=== PATIENT | female | born 1965 | race Caucasian/White ===

== ENCOUNTER 2017-12-08 01:12 | Inpatient (IN) | payer SELFPAY ==
[2017-12-08] MEDS ORDERED: RACEPINEPHRINE HCL 2.25% NEB 0.5 ML AMPUL NEB ONE ×2 (01:25→01:27)
[2017-12-08] MEDS ORDERED: TRANEXAMIC ACID INJ/PF 1,000 MG/10 ML SDV IV ONE ×2 (01:46→02:10)
[2017-12-08] MEDS ORDERED: NORMAL SALINE 250 ML IV PRN ×2 (01:57→03:17)
[2017-12-08 02:02] LABS: ABSOLUTE BASOPHILS # (AUTO) 0.1 10^3/uL (0.0-0.2); ABSOLUTE EOSINOPHILS # (AUTO) 0.8 10^3/uL (0.0-0.6); ABSOLUTE LYMPHOCYTES (AUTO) 3.8 10^3/uL (0.5-4.7); ABSOLUTE MONOCYTES (AUTO) 1.1 10^3/uL (0.1-1.4); ABSOLUTE NEUT (AUTO) 9.2 10^3/uL (1.7-8.2); BASOPHILS % (AUTO) 0.7 % (0-2); EOSINOPHILS % (AUTO) 5.4 % (0-6); HEMATOCRIT 38.9 % (36.0-47.0); HEMOGLOBIN 13.6 g/dL (12.0-15.5); LYMPHOCYTES % (AUTO) 25.3 % (13-45); MEAN CORPUSCULAR HGB CONC 34.8 g/dL (32.0-36.0); MEAN CORPUSCULAR VOLUME 83 fl (80-97); MONOCYTES % (AUTO) 7.1 % (3-13); PLATELET COUNT 385 10^3/uL (150-450); RED BLOOD COUNT 4.68 10^6/uL (3.72-5.28); RED CELL DISTRIBUTION WIDTH 14.5 % (11.5-14.0); SEGMENTED NEUTROPHILS % (AUTO) 61.5 % (42-78); TOTAL CELLS COUNTED % (AUTO) 100 %; WHITE BLOOD COUNT 14.9 10^3/uL (4.0-10.5)
[2017-12-08] MEDS ORDERED: ONDANSETRON HCL INJ/PF 4 MG/2 ML SDV IV ONE (02:17)
[2017-12-08] MEDS ORDERED: ONDANSETRON HCL INJ/PF 4 MG/2 ML SDV ONE (02:18)
--- NOTE | 2017-12-08 02:20 | ER Document Report ---
ED General - General Chief Complaint: Post Surgical Bleeding Stated Complaint: MOUTH PROBLEMS Time Seen by Provider: 12/08/17 01:25 Notes: Patient is a 52-year-old female presents with complaint of bleeding. She had surgery by Dr. Ledbetter at [facility] AT THE [facility] on November 27 for removal of an oral cancer. At that time she had an artificial graft placed. The graft did not take. She was seen on the and he removed some stitches but still left effusion. She restarted her Coumadin a few days ago. After restarting her Coumadin she is having some bleeding. She was seen yesterday at [facility] and there were eventually able to get the bleeding stopped with tranexamic acid. She went home and and eventually start bleeding again therefore came to the ER here. She denies any difficulty breathing. She said the bleeding has been continuous. She denies any trauma or injuries to the area. Her INR level yesterday was 2.5. TRAVEL OUTSIDE OF THE [place] IN LAST 30 DAYS: No - Related Data Allergies/Adverse Reactions: Iodinated Contrast- Oral and IV Dye Allergy (Verified 12/08/17 01:17) morphine Allergy (Verified 12/08/17 01:17) Sulfa (Sulfonamide Antibiotics) Allergy (Verified 12/08/17 01:17) Past Medical History - Social History Smoking Status: Former Smoker Frequency of alcohol use: None Drug Abuse: None Family History: Reviewed & Not Pertinent Review of Systems - Review of Systems Notes: My Normal Review Basic REVIEW OF SYSTEMS: CONSTITUTIONAL : Denies fever, chills, or sweats. Denies recent illness. EENT: Bleeding from left buccal mucosa. RESPIRATORY: Denies cough, cold, or chest congestion. Denies shortness of breath, difficulty breathing, or wheezing. MUSCULOSKELETAL: Denies neck or back pain or joint pain or swelling. NEUROLOGICAL: Denies altered mental status or loss of consciousness. ALL OTHER SYSTEMS REVIEWED AND NEGATIVE. Physical Exam - Vital signs Vitals: Pulse Resp BP Pulse Ox 84 20 132/81 H 95 12/08/17 01:32 12/08/17 01:32 12/08/17 01:32 12/08/17 01:32 - Notes Notes: General Appearance: Well nourished, alert, cooperative, no acute distress, mild obvious discomfort. Vitals: reviewed, See vital signs table. Head: no swelling or tenderness to the head Eyes: PERRL, EOMI, Conjuctiva clear Mouth: Patient is very friable appearing soft tissue inside left buccal mucosa. Active bleeding at this time. Large clot with active bleeding around the clot. Throat: No tonsillar inflammation, No airway obstruction, No lymphadenopathy Neck: Supple, no neck tenderness, No swelling. Lungs: No wheezing, No rales, No rhonci, No accessory muscle use, good air exchange bilaterally. Heart: Normal rate, Regular rythm, No murmur, no rub Neuro: speech clear, oriented x 3, normal affect, responds appropriately to questions. Course - Re-evaluation Re-evalutation: 12/08/17 02:22 Patient has bleeding from mouth from recent surgical site. I initially gave racemic epi. This slowed the bleeding only little bit. I therefore did a tranexamic acid laser treatment 500 mg tranexamic acid. This has not stopped bleeding either. I soaked the gauze of tranexamic acid and placed against site of bleeding. Patient continues to suction. She suctioned out approximately 300 mL's of blood thus far. I have ordered FFP. Is currently following. I will call her ENT doctor, Dr. Fragoso, at [facility] AT [facility]. 12/08/17 02:[address] Araujo who is covering for Dr. Ledbetter. He says he agrees to accept the patient for transfer but he is very concerned about the long truck ride being that is about 3 and half hours by ambulance. I understand his concerns. He requests that maybe our general surgeon take a look to see if he can help and also to call nearby hospitals to have ENT to see if they be willing to accept the patient. I put a call to [facility] and am waiting to hear back. I spoke with Dr. Morrissey, our general surgeon, who agrees to come evaluate the patient. 12/08/17 03:35 Dr. Morrissey did come down and see the patient. Evaluate the areas and we are holding pressure. Has started to decrease. I did speak with the ENT surgeon at [facility]. She said she be happy to accept the patient but she wants to wait to see what her general surgeon can do and whether not FFP help slow down the bleeding. FFP has still not arrived and I did speak with blood bank and they said she be available very soon. We do not have any any ENT business administration professor; however, Dr. Morrissey is able to get in touch with Dr. Wilkerson, local ENT physician, who agreed to come and help Dr. Morrissey in the OR despite him not being business administration professor. We are very appreciative of Dr. Wilkerson's and Dr. Morrissey's help. Patient has now left to go to the OR. - Vital Signs Vital signs: Temp Pulse Resp BP Pulse Ox 82 12 126/81 H 95 12/08/17 03:24 12/08/17 03:24 12/08/17 03:24 12/08/17 03:24 - Laboratory Result Diagrams: 12/08/17 01:49 12/08/17 01:49 Laboratory results interpreted by me: 12/08/17 12/08/17 12/08/17 01:49 01:49 01:49 WBC 14.9 H RDW 14.5 H Absolute Neutrophils 9.2 H Absolute Eosinophils 0.8 H PT 24.4 H APTT 41.2 H Sodium 145.5 H Creatinine 1.56 H Est GFR ( Amer) 42 L Est GFR (Non-Af Amer) 35 L Glucose 187 H Crossmatch 12/08/17 01:49 WBC RDW Absolute Neutrophils Absolute Eosinophils PT APTT Sodium Creatinine Est GFR ( Amer) Est GFR (Non-Af Amer) Glucose Crossmatch See Detail Critical Care Note - Critical Care Note Total time excluding time spent on procedures (mins): 60 Comments: Critical care time for this patient not including time spent on procedures approximately 60 minutes due to frequent trips and treatment at bedside trying to get the bleeding to stop, holding pressure, applying medications, management of hemorrhage, discussion with specialist. Discharge - Discharge Clinical Impression: Post-operative hemorrhage Qualifiers: Procedure type: non-ophthalmic Laterality: left Condition: Stable Disposition: ADMITTED OBSERVATION Admitting Provider: Surgicalist Unit Admitted: OR
[2017-12-08 02:23] LABS: ANION GAP 12 (5-19); BLOOD UREA NITROGEN 18 mg/dL (7-20); CALCIUM 9.1 mg/dL (8.4-10.2); CARBON DIOXIDE 29 mmol/L (22-30); CHLORIDE 105 mmol/L (98-107); GLUCOSE 187 mg/dL (75-110); POTASSIUM 3.8 mmol/L (3.6-5.0); SODIUM 145.5 mmol/L (137-145)
[2017-12-08 02:27] LABS: INTERNATIONAL RATION (INR) 2.08; PROTHROMBIN TIME 24.4 SEC (11.4-15.4)
[2017-12-08 02:28] LABS: PARTIAL THROMBOPLASTIN TIME 41.2 SEC (23.5-35.8)
[2017-12-08] MEDS ORDERED: THROMBIN (BOVINE) TOPICAL 20000 UNIT VIAL TP ONE (03:05)
[2017-12-08] MEDS ORDERED: THROMBIN (BOVINE) 5000 UNIT EPITAXIS KIT ONE (03:09)
[2017-12-08] MEDS ORDERED: AMPICILLIN SOD/SULBACTAM 3 GM VIAL IV ONE (03:19)
[2017-12-08] MEDS ORDERED: MIDAZOLAM 2 MG/2 ML INJ ONE ×2 (03:42→11:09)
[2017-12-08] MEDS ORDERED: PROPOFOL INJ 200 MG/20 ML VIAL IV ONE (03:42)
[2017-12-08] MEDS ORDERED: FENTANYL CITRATE INJ/PF 100 MCG/2 ML AMPUL ONE ×2 (03:42→05:14)
--- NOTE | 2017-12-08 04:08 | PDOC H&P ---
History of Present Illness Admission Date/PCP: 12/08/17 03:33 Patient complains of: Bleeding postoperative surgical site History of Present Illness: JIM MONK is a 52 year old female Who is 10 days status post resection of a left buccal mucosa tumor, with flap reconstruction with allograft at [facility]. The patient was evaluated 4 days ago in postoperative clinic at [place] and was found to have graft failure, and according to the patient the graft was removed. Early this evening the patient developed bleeding from the operative site and called 911 and was brought to [facility] by ground rescue with active bleeding. Of note the patient is on Coumadin for atherosclerotic peripheral vascular disease including the aorta. She resumed Coumadin several days ago. In the emergency department efforts were made by Dr. Delvin Blanton to transfer the patient back to [place], [facility], and [place] but efforts were unsuccessful. Dr. Blanton gave the patient racemic and epinephrine , and TXA, and held mechanical pressure but the bleeding continued. Blood bank was setting up for FFP. Dr. Morrissey arrived on the scene in the emergency department and examined the oral cavity and found multiple small sources of bleeding from the operative site. Compression dressing applied and the surgical team called in for intraoperative control of the bleeding site. Dr. Wilkerson, ENT was also called in. Past Medical History Past Medical History: Pharmacologic anticoagulation Cardiac Medical History: Reports: Myocardial Infarction, Hyperlipidema, Hypertension, Peripheral Vascular Disease Pulmonary Medical History: Reports: Bronchitis, Chronic Obstructive Pulmonary Disease (COPD) EENT Medical History: Reports: Other - Oral malignancy Neurological Medical History: Reports: None Endocrine Medical History: Reports: Diabetes Mellitus Type 2 Malignancy Medical History: Reports: None Musculoskeltal Medical History: Reports: Arthritis Psychiatric Medical History: Reports: None Traumatic Medical History: Reports: None Hematology: Reports: None Past Surgical History Past Surgical History: Reports: Cholecystectomy, Coronary Stent, Knee Replacement Social History Smoking Status: Current Every Day Smoker Frequency of Alcohol Use: Occasional Hx Recreational Drug Use: No Hx Prescription Drug Abuse: No Family History Parental Family History Reviewed: Yes Children Family History Reviewed: Yes Sibling(s) Family History Reviewed.: Yes Medication/Allergy Allergies/Adverse Reactions: Iodinated Contrast- Oral and IV Dye Allergy (Verified 12/08/17 01:17) morphine Allergy (Verified 12/08/17 01:17) Sulfa (Sulfonamide Antibiotics) Allergy (Verified 12/08/17 01:17) Review of Systems Constitutional: PRESENT: as per HPI Eyes: ABSENT: visual disturbances Ears: ABSENT: hearing changes Nose, Mouth, and Throat: PRESENT: as per HPI Gastrointestinal: ABSENT: abdominal pain, constipation, diarrhea, hematemesis, hematochezia, nausea, vomiting Genitourinary: ABSENT: dysuria, hematuria Psychiatric: ABSENT: anxiety, depression, homidical ideation, suicidal ideation Endocrine: ABSENT: cold intolerance, heat intolerance, polydipsia, polyuria Physical Exam Vital Signs: Temp Pulse Resp BP Pulse Ox 82 12 126/81 H 95 12/08/17 03:24 12/08/17 03:24 12/08/17 03:24 12/08/17 03:24 General appearance: PRESENT: mild distress Head exam: PRESENT: normocephalic Eye exam: PRESENT: EOMI Mouth exam: PRESENT: other - Active bleeding from the left buccal mucosa Neck exam: PRESENT: full ROM Respiratory exam: PRESENT: wheezes Cardiovascular exam: PRESENT: RRR Pulses: PRESENT: normal carotid pulses, normal radial pulses, normal femoral pulses, normal dorsalis pedis pul GI/Abdominal exam: PRESENT: soft, other - Nontender no peritoneal signs Rectal exam: PRESENT: deferred Extremities exam: PRESENT: full ROM Musculoskeletal exam: PRESENT: full ROM Neurological exam: PRESENT: alert, awake, oriented to person, oriented to place , oriented to time, oriented to situation Psychiatric exam: PRESENT: anxious Skin exam: PRESENT: dry Assessment & Plan - Diagnosis (1) Postoperative bleeding from incision Is this a current diagnosis for this admission?: Yes Plan: Patient has active postoperative bleeding from her oral mucosa at the side of resection of tumor at [facility] 10 days ago that is uncontrolled with pressure, and pro coagulant interventions. The patient needs to be taken to the operating room for control conditions, and mechanical. We have recruited Dr. Topete, ENT surgeon, to assist. (2) Type 2 diabetes mellitus Is this a current diagnosis for this admission?: Yes (3) Anticoagulation excessive Is this a current diagnosis for this admission?: Yes (5) History of intravascular stent placement Is this a current diagnosis for this admission?: Yes (6) Arthritis Is this a current diagnosis for this admission?: Yes (7) Smoker Is this a current diagnosis for this admission?: Yes (8) COPD (chronic obstructive pulmonary disease) Is this a current diagnosis for this admission?: Yes - Time Time Spent: 30 to 50 Minutes Critical Time spent with patient: 15-24 minutes Medications reviewed and adjusted accordingly: Yes Anticipated discharge: Home - Inpatient Certification Based on my medical assessment, after consideration of the patient's comorbidities, presenting symptoms, or acuity I expect that the services needed warrant INPATIENT care.: Yes I certify that my determination is in accordance with my understanding of Medicare's requirements for reasonable and necessary INPATIENT services [42 CFR 412.3e].: Yes Medical Necessity: Need For IV Fluids, Need for Pain Control, Need for IV Antibiotics, Need for Surgery
[2017-12-08] MEDS ORDERED: MEPERIDINE HCL/PF INJ 25 MG/1 ML DISP.SYRIN IV PRN (05:11)
[2017-12-08] MEDS ORDERED: PROMETHAZINE HCL INJ 25 MG/1 ML VIAL IV PRN (05:11)
[2017-12-08] MEDS ORDERED: DIPHENHYDRAMINE HCL 50 MG/ML VIAL IV PRN (05:11)
[2017-12-08] MEDS ORDERED: FENTANYL CITRATE INJ/PF 100 MCG/2 ML AMPUL IV PRN ×3 (05:11)
[2017-12-08] MEDS ORDERED: NICARDIPINE HCL RTU, ISO-OS 20 MG/200 ML RTUINJ IV ONE (05:52)
[2017-12-08] MEDS ORDERED: NICARDIPINE HCL RTU, ISO-OS 20 MG/200 ML RTUINJ IV PRN (06:09)
--- NOTE | 2017-12-08 07:07 | RADIOLOGY REPORT (SQ) ---
EXAM DESCRIPTION: XR CHEST 1 VIEW COMPLETED DATE/TME: 12/08/2017 00:00 CLINICAL HISTORY: ETT placement COMPARISON: None. FINDINGS: Single frontal view of the chest. Endotracheal tube with tip at the level of the clavicles 5.5 cm above the esequiel left basilar airspace opacity. Heart is not enlarged. Atherosclerotic calcification of the thoracic aorta. No large effusion or pneumothorax. Leads overlie the chest. No acute osseous abnormalities. Upper abdominal soft tissues are unremarkable. IMPRESSION: 1. Endotracheal tube in appropriate position with tip 5.5 cm above the esequiel. 2. Left basilar opacities. This could be seen with developing pneumonia or atelectasis. Continued radiographic follow-up to resolution recommended.
[2017-12-08] MEDS: PROPOFOL 1,000 MG/100 ML INFUS..BTL IV PRN ×2 (07:12→08:43)
[2017-12-08] MEDS ORDERED: MORPHINE SULFATE 10 MG/ML INJ IV PRN (07:12)
--- NOTE | 2017-12-08 08:51 | EKG REPORT ---
SEVERITY:- ABNORMAL ECG - SINUS RHYTHM NONSPECIFIC T ABNORMALITIES, ANT-LAT LEADS : Confirmed by: Jose F Segura 08-Dec-2017 08:50:52
[2017-12-08 09:16] LABS: ANION GAP 12 (5-19); BLOOD UREA NITROGEN 21 mg/dL (7-20); CALCIUM 8.7 mg/dL (8.4-10.2); CARBON DIOXIDE 27 mmol/L (22-30); CHLORIDE 106 mmol/L (98-107); GLUCOSE 298 mg/dL (75-110); HEMATOCRIT 33.3 % (36.0-47.0); MEAN CORPUSCULAR HEMOGLOBIN 28.5 pg (27.0-33.4); MEAN CORPUSCULAR HGB CONC 33.4 g/dL (32.0-36.0); MEAN CORPUSCULAR VOLUME 85 fl (80-97); PLATELET COUNT 385 10^3/uL (150-450); POTASSIUM 4.1 mmol/L (3.6-5.0); RED CELL DISTRIBUTION WIDTH 14.4 % (11.5-14.0); SODIUM 145.3 mmol/L (137-145)
[2017-12-08 09:25] LABS: INTERNATIONAL RATION (INR) 1.45; PROTHROMBIN TIME 18.4 SEC (11.4-15.4)
[2017-12-08 09:26] LABS: PARTIAL THROMBOPLASTIN TIME 35.5 SEC (23.5-35.8)
[2017-12-08 09:34] LABS: HEMOGLOBIN 11.1 g/dL (12.0-15.5)
[2017-12-08] MEDS ORDERED: HYDROMORPHONE HCL INJ/PF 2 MG/ML AMPULE IV PRN (09:36)
[2017-12-08] MEDS ORDERED: INSULIN REG, HUMAN 100 UNIT/ML 3 ML VIAL (PYX) SUBCUT PRN (09:36)
[2017-12-08] MEDS ORDERED: GLUCAGON,HUMAN RECOMB 1 MG INJ IM PRN (09:36)
[2017-12-08] MEDS ORDERED: DEXTROSE 50%-WATER 25 GM/50 ML DISP.SYRIN IV PRN ×2 (09:36)
[2017-12-08] MEDS ORDERED: DEXTROSE 40% GEL 15 GM TUBE PO PRN ×2 (09:36)
--- NOTE | 2017-12-08 09:40 | PDOC PROGRESS REPORT ---
Subjective Progress Note for:: 12/08/17 Subjective:: Intubated and sedated Reason For Visit: OBSTRUCTION,S/P POST-OP ORAL BLEED Physical Exam Vital Signs: Temp Pulse Resp BP Pulse Ox 97.2 F 86 15 90/66 L 95 12/08/17 08:00 12/08/17 08:00 12/08/17 08:00 12/08/17 08:00 12/08/17 08:25 Intake & Output 12/07/17 12/08/17 12/09/17 06:59 06:59 06:59 Intake Total 950 69 Output Total 275 1150 Balance 675 -1081 Weight 70.8 kg General appearance: PRESENT: no acute distress Mouth exam: PRESENT: other - No active bleeding. Respiratory exam: PRESENT: rhonchi Cardiovascular exam: PRESENT: RRR Results Laboratory Results: 12/08/17 06:05 12/08/17 06:05 Sodium 145.3 H Potassium 4.1 Chloride 106 Carbon Dioxide 27 Anion Gap 12 BUN 21 H Creatinine 1.12 Est GFR ( Amer) > 60 Est GFR (Non-Af Amer) 51 L Glucose 298 H Calcium 8.7 Impressions: Chest X-Ray 12/08/17 00:00 IMPRESSION: 1. Endotracheal tube in appropriate position with tip 5.5 cm above the esequiel. 2. Left basilar opacities. This could be seen with developing pneumonia or atelectasis. Continued radiographic follow-up to resolution recommended. Assessment & Plan - Diagnosis (1) Post-operative hemorrhage Is this a current diagnosis for this admission?: Yes Plan: Status post surgical control and infusion of FFP. Hemorrhage appears to be under control. Will recheck labs. Keep patient intubated for now. Pending transfer to [facility] under the care of surgical service of her original surgeon.
--- NOTE | 2017-12-08 10:06 | OPERATIVE REPORT E ---
Operative Report NAME: JIM MONK : 1965 AGE: 52Y DATE OF SURGERY: 12/08/2017 ROOM: 601 PREOPERATIVE DIAGNOSES: 1. Left retromolar trigone and buccal mucosal area active arterial bleeding. 2. Recent history of left retromolar trigone and left buccal area tumor resection with local flap reconstruction. 3. Anticoagulation with Coumadin. POSTOPERATIVE DIAGNOSES: 1. Left retromolar trigone and buccal mucosal area active arterial bleeding. 2. Recent history of left retromolar trigone and left buccal area tumor resection with local flap reconstruction. 3. Anticoagulation with Coumadin. OPERATION PERFORMED: Complicated control of active arterial bleeding at the left retromolar trigone and buccal areas. PRIMARY SURGEON: JANA WILKERSON D.O. ASSISTING SURGEON: Cory Morrissey M.D. ANESTHETIC: General endotracheal tube. ANESTHESIA STAFF: GÓMEZ Schmidt ESTIMATED BLOOD LOSS: 75 mL. FLUIDS: 750 mL. FRESH FROZEN PLASMA: 600 mL. COMPLICATIONS: None during the case. FINDINGS: 1. The patient was noted to have active bright red blood flowing from the left side of her mouth despite having packs along the left buccal distribution. 2. The oral cavity and oropharynx was full of clotted blood and active bright red bleeding. 3. After extensive suctioning and removal of clot and irrigation, the area of the left retromolar trigone was noted to have necrotic tissue present. Once this tissue was debrided, the exact location of active arterial bleeding could be fully identified. 4. There was also active mucosal and granulation tissue bleeding throughout the postsurgical site. 5. Poor dentition with multiple missing teeth and extensive dental caries noted. 6. The soft palatal tissues were significantly redundant in nature and the uvula was midline and unremarkable in appearance. 7. The tongue was unremarkable in appearance. INDICATIONS: This is a 52-year-old white female who was seen and evaluated in the [facility] Emergency [facility] setting in the early childhood teacher assistant hours by General Surgery, Dr. Morrissey, and she was noted to have active oral cavity/oropharyngeal bleeding. The patient was also anticoagulated on Coumadin. The patient was approximately 10 days postop from a tumor resection with local flap reconstruction performed at [facility]. Dr. Morrissey was unable to clearly delineate where the active bleeding was coming from and was having to apply manual pressure in addition to packing the patient's mouth with gauze to have some degree of reasonable decrease in active bleeding. ENT was contacted for assistance for definitive management of active bleeding. I, Dr. Wilkerson, met the patient in the preop holding area outside the main OR and briefly discussed her situation and informed her that I would be assisting Dr. Morrissey and the OR team to manage her active bleeding. The patient at the time had her left oral cavity/buccal mucosal distribution packed with gauze. She voiced an understanding of the described plan and was in agreement. PROCEDURE: The patient was taken to the main operating room and was placed on the operating room table in the supine position. Appropriate monitors were placed. Using mask and IV access, general anesthesia was induced. The patient was transorally intubated without difficulty. At this point the patient was prepped and draped for oral cavity/oropharyngeal surgery. There was a Jannet-Yefri mouth gag inserted, it was opened, and the patient was placed into suspension. With additional retraction and extensive irrigation, clots were mobilized and removed. The necrotic debris in the retromolar trigone distribution on the left was removed. There was active arterial bleeding noted that was controlled with the use of suction and bipolar electrocautery. There was also additional bleeding throughout the left buccal distribution and retromolar trigone region as noted above. Suction electrocautery and bipolar electrocautery were both utilized to achieve adequate hemostasis. Additional findings are as noted above. The patient then underwent exam under anesthesia of the remaining oral cavity and oropharynx with additional blood clots removed from these areas. There was additional irrigation performed. There was no additional bleeding or blood clots noted. At this point the patient was cleaned of extensive dried blood over skin surfaces. The Jannet-Yefri mouth gag was released. It was reopened on 2 occasions with no additional bleeding noted. It was then closed and removed from the patient's mouth. There was no damage to the remaining teeth, lips, tongue, gums, or inside of the mouth. The patient was then returned to the anesthesia staff after additional dried blood was cleaned. The patient remained intubated and was then transported to the intensive care unit in stable condition. There were arrangements being made to transfer the patient back to [facility] for definitive management. There were no complications during the case. DICTATING PHYSICIAN: JANA WILKERSON D.O. [id number] PHY#: [id number] ID: [id number] JOB#: [id number] ACCT: [id number] cc:JANA WILKERSON D.O. >
[2017-12-08] MEDS ORDERED: ROCURONIUM BROMIDE INJ 50 MG/5 ML VIAL IV ONE (10:14)
[2017-12-08] MEDS ORDERED: SUCCINYLCHOLINE CHLORIDE INJ 200 MG/10 ML VIAL ONE (10:14)
[2017-12-08] MEDS ORDERED: MIDAZOLAM 2 MG/2 ML INJ IV PRN (11:10)
--- NOTE | 2017-12-08 11:53 | Physician Advisory Note ---
Physician Advisor ProgressNote .: Pursuant to the plan for [facility], I have reviewed the medical record for this patient. Physician Advisor Statement: Please consider documenting, if you agree: 1. "Anemia of Acute Blood Loss due to post-op hemorrhage" 2. "Acute Kidney Injury, likely due to , now resolved" 3. ?"possible ____ [gram-neg? anaerobic?aspiration?] pneumonia, evidenced by worsening leukocytosis, new lung opacities, rhonchi, " - If so, please state whether may have been developing at time of adm or not. 4. "Mild Acute hypernatremia, suspect due to " Status: 52yo w/ASPVD including aorta requiring intravascular stent & subsequent chronic anticoagulation, HTN, HLD, COPD, DM-2, ongoing tobacco abuse , extensive dental caries, recent removal of oral CA @ [facility] w/failure of allograft, came in w/active bleeding from multiple areas of friable soft tissue in retro-molar area while therapeutic on coumadin, not responsive to non- operative attempts to control bleeding. Taken emergently to OR for complicated surgery to control active arterial bleeding, including debridement of necrotic tissue. Had apparent FANTASMA + hypernatremia initially, as well. Attg ordered Inpt status at 03:30, just prior to taking pt to OR. Since surgery, kept intubated for protection of airway & in case she should require urgent repeat surgery, w/ plans underway for transfer to tertiary ctr. Pt w/rhonchi on exam now, CXR showing Lt basliar opacities concerning for possible Pneumonia, & leukocytosis is worsened. Pt also w/developing & worsening hypotension. Could be developing into sepsis from pneumonia. Pneumonia could be from aspiration of oral secretions (caries slime), or blood, or gram-neg bacteria (COPD, active smoking, DM-2. She is at high risk for difficulty fighting infection due to DM. Overall, severely high severity of illness & intensity of service & risk for morbidity/mortality in this case. Unknown insurer (listed as self-pay, but she could have insurance with the info just not obtained b/c of the acuity of her presentation). Unknown when [facility] may have a bed available, & when she will be felt sufficiently stabilized for transport to be reasonably safe. Attending clearly extremely concerned about this pt, not allowing nurse to transfuse prior to surgery due to level of urgency to stop the bleeding. Agree w/attending's decision for Inpatient status in this case. Thanks! CK -
--- NOTE | 2017-12-08 12:16 | TRANSFER SUMMARY E ---
Transfer Summary NAME: JIM MONK : 1965 AGE: 52Y ADMITTED: 12/08/2017 TRANSFERRED: 12/08/2017 DISCHARGE DIAGNOSES: 1. Postoperative bleed. 2. Left retromolar trigone and buccal mucosal active arterial bleeding with history of left retromolar trigone and left buccal area tumor resection with local flap reconstruction. PROCEDURE PERFORMED DURING HOSPITALIZATION: Complicated control of active arterial bleeder at the left retromolar trigone and buccal areas performed by Dr. Wilkerson on 12/08/2017. HOSPITAL COURSE: The patient was taken emergently to the operating room where she underwent the above-mentioned procedure. She had hemorrhage controlled in the operating room and did not demonstrate any evidence of active bleeding postoperatively. She was kept intubated and transfer arrangements were made with [facility] with the surgical team of her original surgeon at [place]. The patient is now being transferred to [facility] in stable condition. Her transfer medications are sliding scale insulin q.6 hours, 0-12 units subcutaneous regular insulin p.r.n., Versed 1 mg IV every 4 hours as needed. Patient had initially been placed on a nicardipine drip which was titrated to off at the time of transfer, Dilaudid 0.5 mg IV q.2 hours p.r.n., normal saline at 100 mL/h. Of note, her post intubation chest x-ray did demonstrate left basilar opacities, which will need to be followed upon transfer to [facility]. Her postoperative hematocrit was 33, her admission hematocrit was 38. She did receive FFP last night and her initial INR was 2.08 and her INR in the morning of transfer was 1.45, and again she had no evidence of active bleeding at the time of transfer. Her vent settings at the time of transfer are SIMV with a rate of 10, pressure support of 10, PEEP of 5, tidal volume of 450, and FiO2 of 40. DICTATING PHYSICIAN: MARCO GA M.D. [id number] PHY#: [id number] ID: [id number] JOB#: [id number] ACCT: [id number] cc:MARCO GA M.D. > [facility]
[2017-12-08 13:25] VITALS: BP 92/72
[2017-12-08] MEDS ORDERED: PIPERACILLIN SODIUM/TAZOBACTAM 3.375 GM in NORMAL SALINE 100 ML IV SCH (14:00)
== END 2017-12-08 12:52 | disposition short-term general hospital (02) | DRG 908 ==
LOC: ER 01:12 → EH 03:33 → OBSVTOIN 03:33 → ICU 05:35
PROVIDERS: ADMIT Surgery; ATTEND Surgery
PROC: 0CB4XZZ Excision of Buccal Mucosa, External Approach (ICD-10-PCS; 2017-12-08)
PROC: 30233K1 Transfusion of Nonautologous Frozen Plasma into Peripheral Vein, Percutaneous Approach (ICD-10-PCS; 2017-12-08)
PROC: 3E0DXGC Introduction of Other Therapeutic Substance into Mouth and Pharynx, External Approach (ICD-10-PCS; 2017-12-08)
PROC: 0W33XZZ Control Bleeding in Oral Cavity and Throat, External Approach (ICD-10-PCS; principal; 2017-12-08 04:16)
DX: K91.840 Postprocedural hemorrhage of a digestive system organ or structure following a digestive system procedure (principal); D68.32 Hemorrhagic disorder due to extrinsic circulating anticoagulants; E11.9 Type 2 diabetes mellitus without complications; C06.0 Malignant neoplasm of cheek mucosa; T45.515A Adverse effect of anticoagulants, initial encounter; J44.9 Chronic obstructive pulmonary disease, unspecified; M19.90 Unspecified osteoarthritis, unspecified site; K02.9 Dental caries, unspecified; E78.5 Hyperlipidemia, unspecified; I10 Essential (primary) hypertension; E11.51 Type 2 diabetes mellitus with diabetic peripheral angiopathy without gangrene; R91.8 Other nonspecific abnormal finding of lung field; Z96.659 Presence of unspecified artificial knee joint; F17.200 Nicotine dependence, unspecified, uncomplicated; Z95.5 Presence of coronary angioplasty implant and graft; Z88.6 Allergy status to analgesic agent; Z88.2 Allergy status to sulfonamides; Z91.041 Radiographic dye allergy status
CPT/HCPCS: 170; 36415; 36430; 71045; 80048; 82962; 85025; 85027; 85610; 85730; 86850; 86900; 86901; 86920; 93005; 93010; 94002; 94640; 96374; 96375; 99291; J0330; J1170; J1815; J2250; J2270; J2405; J2704; J3010; J3490; P9017

== ENCOUNTER 2018-03-23 10:32 | Emergency (ER) | payer SELFPAY ==
--- NOTE | 2018-03-23 11:01 | ER Document Report ---
ED Medical Screen (RME) - General Chief Complaint: Vaginal Discharge Stated Complaint: POSSIBLE STD Time Seen by Provider: 03/23/18 10:36 Mode of Arrival: Ambulatory Information source: Patient, [facility] Records Notes: 52-year-old female presents with complaint of left-sided facial swelling and neck swelling that started yesterday. She also presents with complaint of vaginal discharge, for 2 weeks. Patient does admit to unprotected sex with a new partner. She describes the discharge as yellow-green. I have greeted and performed a rapid initial assessment of this patient. A comprehensive ED assessment and evaluation of the patient, analysis of test results and completion of medical decision making process we will be contacted by additional ED providers. PHYSICAL EXAMINATION: Vital signs reviewed GENERAL: Well-appearing, well-nourished and in no acute distress. LUNGS: No respiratory distress Musculoskeletal: Normal range of motion NEUROLOGICAL: Normal speech, normal gait. PSYCH: Normal mood, normal affect. SKIN: Warm, Dry, normal turgor, no rashes or lesions noted. TRAVEL OUTSIDE OF THE [place] IN LAST 30 DAYS: No - HPI Onset: Yesterday Onset/Duration: Gradual Quality of pain: Throbbing Severity: Moderate Associated Symptoms: denies: Chest pain, Cough (productive), Fever, Shortness of breath Exacerbated by: Denies Relieved by: Denies Similar symptoms previously: Yes Recently seen / treated by doctor: Yes - Related Data Smoking: Cigarettes Frequency of alcohol use: None Drug Abuse: None Allergies/Adverse Reactions: Iodinated Contrast- Oral and IV Dye Allergy (Verified 03/23/18 10:33) morphine Allergy (Verified 03/23/18 10:33) Sulfa (Sulfonamide Antibiotics) Allergy (Verified 03/23/18 10:33) Past Medical History - Past Medical History Cardiac Medical History: Reports: Hx Heart Attack, Hx Hypercholesterolemia, Hx Hypertension, Hx Peripheral Vascular Disease Pulmonary Medical History: Reports: Hx Bronchitis, Hx COPD Endocrine Medical History: Reports: Hx Diabetes Mellitus Type 2 Renal/ Medical History: Denies: Hx Peritoneal Dialysis Musculoskeltal Medical History: Reports Hx Arthritis Past Surgical History: Reports: Hx Cholecystectomy, Hx Coronary Stent - Immunizations History of Influenza Vaccine for 01/2017 - 06/2017 Season: Unknown Physical Exam - Vital signs Vitals: Temp Pulse Resp BP Pulse Ox 98.6 F 74 18 144/85 H 99 03/23/18 10:41 03/23/18 10:41 03/23/18 10:41 03/23/18 10:41 03/23/18 10:41 Course - Vital Signs Vital signs: Temp Pulse Resp BP Pulse Ox 98.6 F 74 18 144/85 H 99 03/23/18 10:41 03/23/18 10:41 03/23/18 10:41 03/23/18 10:41 03/23/18 10:41
[2018-03-23 11:55] LABS: APPEARANCE,URINE CLEAR; BILIRUBIN,URINE NEGATIVE (NEGATIVE); COLOR,URINE YELLOW; GLUCOSE, URINE >=500 mg/dL (NEGATIVE); KETONES,URINE NEGATIVE (NEGATIVE); LEUKOCYTE ESTERASE,URINE MODERATE (NEGATIVE); NITRITE,URINE NEGATIVE (NEGATIVE); PROTEIN,URINE NEGATIVE (NEGATIVE); URINE SPECIFIC GRAVITY 1.011; UROBILINOGEN,URINE NEGATIVE mg/dL (<2.0)
[2018-03-23 12:12] LABS: BACTERIA (WET MOUNT) 3+ BACTERIA SEEN; RBCS (WET MOUNT) RARE RBCS SEEN; T.VAGINALIS (WET MOUNT) TRICHOMONAS SEEN; WBCS (WET MOUNT) 4+ WBCS SEEN; YEAST (WET MOUNT) NO YEAST SEEN
[2018-03-23] MEDS ORDERED: CEFTRIAXONE INJ 250 MG VIAL IM ONE (12:25)
[2018-03-23] MEDS ORDERED: LIDOCAINE 1% INJ-PF (10 MG/ML) 30 ML SDV INFIL ONE (12:25)
[2018-03-23] MEDS ORDERED: DOXYCYCLINE HYCLATE 100 MG TABLET PO ONE (12:29)
[2018-03-23] MEDS ORDERED: ONDANSETRON 4 MG TAB.RAPDIS PO ONE (12:41)
[2018-03-23] MEDS ORDERED: METRONIDAZOLE 500 MG TABLET PO ONE (12:41)
--- NOTE | 2018-03-23 13:41 | ER Document Report ---
ED GI/ - General Chief Complaint: Vaginal Discharge Stated Complaint: POSSIBLE STD Time Seen by Provider: 03/23/18 10:36 Mode of Arrival: Ambulatory TRAVEL OUTSIDE OF THE U.[place]. IN LAST 30 DAYS: No - HPI Patient complains to provider of: Other - Is a 52-year-old female with past medical history significant for diabetes as well as head and neck cancer that presents for evaluation of vaginal discharge and pain in the setting of a change recently in sexual partner. She notes that she has had sex with a single partner recently in an unprotected fashion after which she developed frothy discharge from her vagina with associated pelvic pain and cramping. She denies fevers, she denies nausea, she denies emesis, she denies constipation, she denies diarrhea. She does note that she has never had symptoms like this in the past and is concerned it could potentially be a sexually transmitted infection. Nothing has made it better, she has not tried anything to try and help with it. She does note that she has in the past had yeast infections as a result of antibiotic use. - Related Data Allergies/Adverse Reactions: codeine Allergy (Verified 03/23/18 11:41) Iodinated Contrast- Oral and IV Dye Allergy (Verified 03/23/18 11:41) morphine Allergy (Verified 03/23/18 11:41) Sulfa (Sulfonamide Antibiotics) Allergy (Verified 03/23/18 11:41) Past Medical History - General Information source: Patient, [facility] Records Last Menstrual Period: n/a - Social History Smoking Status: Current Every Day Smoker Chew tobacco use (# tins/day): No Frequency of alcohol use: None Drug Abuse: None Family History: Reviewed & Not Pertinent Patient has suicidal ideation: No Patient has homicidal ideation: No - Past Medical History Cardiac Medical History: Reports: Hx Heart Attack, Hx Hypercholesterolemia, Hx Hypertension, Hx Peripheral Vascular Disease Pulmonary Medical History: Reports: Hx Bronchitis, Hx COPD Endocrine Medical History: Reports: Hx Diabetes Mellitus Type 2 Renal/ Medical History: Denies: Hx Peritoneal Dialysis Musculoskeletal Medical History: Reports Hx Arthritis Past Surgical History: Reports: Hx Cardiac Catheterization - x stent 1, Hx Cholecystectomy, Hx Coronary Stent, Hx Hysterectomy Review of Systems - Review of Systems -: Yes All other systems reviewed and negative Physical Exam - Vital signs Vitals: Temp Pulse Resp BP Pulse Ox 98.6 F 74 18 144/85 H 99 03/23/18 10:41 03/23/18 10:41 03/23/18 10:41 03/23/18 10:41 03/23/18 10:41 - General General appearance: Appears well In distress: None - HEENT Head: Other - Asymmetric face with some appreciable swelling along the left side of the cheek into the mandible Eyes: Normal Conjunctiva: Normal Cornea: Normal Extraocular movements intact: Yes Eyelashes: Normal Pupils: PERRL - Respiratory Respiratory status: No respiratory distress Chest status: Nontender Breath sounds: Normal Chest palpation: Normal - Cardiovascular Rhythm: Regular Heart sounds: Normal auscultation Murmur: No - Abdominal Inspection: Normal Distension: No distension Bowel sounds: Normal Tenderness: Nontender Organomegaly: No organomegaly - Genitourinary External exam: Normal Speculum exam: Cervix closed, Vaginal discharge Vaginal bleeding: None - Back Back: Normal - Extremities General upper extremity: Normal inspection, Nontender, Normal color, Normal ROM , Normal temperature General lower extremity: Normal inspection, Nontender, Normal color, Normal ROM , Normal temperature, Normal weight bearing. No: Wendy's sign - Neurological Neuro grossly intact: Yes Cognition: Normal Orientation: AAOx4 [place] Coma Scale Eye Opening: Spontaneous [place] Coma Scale Verbal: Oriented [place] Coma Scale Motor: Obeys Commands Henry Coma Scale Total: 15 Speech: Normal Cranial nerves: Normal Cerebellar coordination: Normal Motor strength normal: LUE, RUE, LLE, RLE - Psychological Associated symptoms: Normal affect Course - Re-evaluation Re-evalutation: 03/23/18 17:35 52-year-old female who presents with complaints of lymphedema in her face which is noted in the past along the left side. Also she complains of pelvic discharge and pain in the setting of a recent change in sexual partners. The edema of the face is known to her oncologist and ENT surgeon, do not believe that this represents an acute emergency and that there is an immediate intervention which is warranted. We did discuss further imaging options though we agreed we would defer these at this time. We will plan to perform a pelvic examination and obtain pelvic swabs. Following obtaining pelvic swabs notable that patient has trichomoniasis. Also will obtain an HIV as we did discuss this potentially being an issue for her, she is in agreement at this time for treatment presumptively of her trichomoniasis gonorrhea and chlamydia. She will be discharged on a course of prescription. She will follow-up with her ENT surgeon. - Vital Signs Vital signs: Temp Pulse Resp BP Pulse Ox 98.1 F 74 19 132/72 H 98 03/23/18 15:01 03/23/18 15:01 03/23/18 15:01 03/23/18 15:01 03/23/18 15:01 - Laboratory Laboratory results interpreted by me: 03/23/18 11:13 Urine Glucose (UA) >=500 H Ur Leukocyte Esterase MODERATE H Procedures - Pelvic Exam Pelvic exam Cultures obtained: Yes Wet prep obtained: Yes Herpes culture obtained: No POC sent to lab: No Foreign body removed: No Bimanual exam performed: No Discharge - Discharge Clinical Impression: Trichomoniasis of vagina, Vaginal pain Edema Qualifiers: Edema type: unspecified Qualified Code(s): R60.9 - Edema, unspecified Condition: Good Disposition: HOME, SELF-CARE Instructions: Trichomonas Infection ([facility]), Vaginal Yeast Infection ([facility]) Additional Instructions: You were seen today in the emergency department for the vaginal discharge and vaginal pain as well as your facial swelling. You had evaluation including a physical exam as well as a pelvic exam. It appears that you likely have trichomoniasis. Use the antibiotic prescribed you for the next 10 days. Follow-up with your primary physician this week for reevaluation. Return for worsening abdominal pain, fevers, chills, inability to eat or drink. Schedule an appointment with your ENT surgeon for evaluation of the edema in your face. Prescriptions: Doxycycline Hyclate 100 mg PO BID #14 capsule Fluconazole [Diflucan] 100 mg PO ONCE PRN #2 tablet PRN Reason:
[2018-03-23 13:49] LABS: CHLAM PCR NOT DETECTED (NOT DETECT); GON PCR NOT DETECTED (NOT DETECT)
[2018-03-23 15:02] VITALS: BP 132/72
== END 2018-03-23 15:01 | disposition home or self-care (01) ==
LOC: ER 10:32
DX: A59.01 Trichomonal vulvovaginitis (principal); I89.0 Lymphedema, not elsewhere classified; I10 Essential (primary) hypertension; E11.51 Type 2 diabetes mellitus with diabetic peripheral angiopathy without gangrene; F17.200 Nicotine dependence, unspecified, uncomplicated; Z95.5 Presence of coronary angioplasty implant and graft; Z85.9 Personal history of malignant neoplasm, unspecified
CPT/HCPCS: 99283; 96372; 36415; 87210; 81001; 86701; 87491; 87591; S0119; J3490; J0696

== ENCOUNTER 2018-07-21 08:29 | Emergency (ER) | payer MEDICAID ==
--- NOTE | 2018-07-21 09:36 | RADIOLOGY REPORT (SQ) ---
EXAM DESCRIPTION: CHEST SINGLE VIEW COMPLETED DATE/TIME: 07/21/2018 9:24 am REASON FOR STUDY: cough COMPARISON: 12/08/2017 EXAM PARAMETERS: NUMBER OF VIEWS: One view. TECHNIQUE: Single frontal radiographic view of the chest acquired. RADIATION DOSE: NA LIMITATIONS: None. FINDINGS: LUNGS AND PLEURA: No opacities, masses or pneumothorax. No pleural effusion. MEDIASTINUM AND HILAR STRUCTURES: No masses. Contour normal. HEART AND VASCULAR STRUCTURES: Heart normal in size. Normal vasculature. BONES: No acute findings. HARDWARE: None in the chest. OTHER: No other significant finding. IMPRESSION: No acute abnormality of the lungs in AP projection. TECHNICAL DOCUMENTATION: JOB ID: [id number] [employer]- All Rights Reserved Reading location - IP/workstation name: [email or web address]
--- NOTE | 2018-07-21 10:09 | ER Document Report ---
ED General - General Chief Complaint: Vaginal Bleeding Stated Complaint: VAGINAL BLEEDING Time Seen by Provider: 07/21/18 08:58 Primary Care Provider: [facility] [Provider Group] - Follow up as needed [facility] [Provider Group] - Follow up as needed TRAVEL OUTSIDE OF THE U.[place]. IN LAST 30 DAYS: No - HPI Notes: Patient is a 52-year-old female that presents to the emergency department for chief complaint of vaginal bleeding. Patient states this morning she has some bright red blood on her panty liner. She has stress incontinence and uses a urinary pad. She states it is a light pink and a small amount. She is not sure if it is in her urine or coming from her vagina. She denies any vaginal pain but does states she has had some itching and external irritation for the last few days. Patient does get frequent yeast infections and states she is concerned she probably has one currently. She has a history of hysterectomy. She has never had an issue with vaginal bleeding since her hysterectomy. Patient also states she has seasonal allergies and has been coughing a lot recently. She denies associated fever and chest pain. She did use an albuterol inhaler once this morning with some relief. Past Medical History: Seasonal allergies, diabetes Past Surgical History: Hysterectomy Social History: Daily tobacco. Denies drug and alcohol use Family History: Reviewed and noncontributory for presenting illness Allergies: Reviewed, see documented allergy list. REVIEW OF SYSTEMS: CONSTITUTIONAL : No fever No chills No diaphoresis No recent illness EENT: No vision changes congestion No sore throat CARDIOVASCULAR: No chest pain No palpitations RESPIRATORY: shortness of breath cough No difficulty breathing GASTROINTESTINAL: No abdominal pain No nausea No vomiting No diarrhea GENITOURINARY: No dysuria No hematuria No difficulty urinating Vaginal bleeding MUSCULOSKELETAL: No back pain No leg pain No arm pain SKIN: No rashes No lesions LYMPHATIC: No swollen, enlarged glands. NEUROLOGICAL: No lightheadedness No headache No weakness No paresthesias PSYCHIATRIC: No anxiety No depression PHYSICAL EXAMINATION: Vital signs reviewed, nursing noted reviewed. GENERAL: Well-appearing, well-nourished and in no acute distress. HEAD: Atraumatic, normocephalic. EYES: Eyes appear normal, extraocular movements intact, sclera anicteric, conjunctiva are normal. ENT: nares patent, oropharynx clear without exudates. Moist mucous membranes. NECK: Normal range of motion, supple without lymphadenopathy LUNGS: Breath sounds clear to auscultation bilaterally and equal. No wheezes rales or rhonchi. HEART: Regular rate and rhythm without murmurs ABDOMEN: Soft, nontender, normoactive bowel sounds. No rebound, guarding, or rigidity. No masses appreciated. : External vaginal erythema and irritation, friable area with trace bright red bleeding on anterior aspect of vaginal wall. No other vaginal wall irritation or bleeding. Thick white vaginal discharge. No adnexal tenderness. EXTREMITIES: Nontender, good range of motion, no pitting or edema. NEUROLOGICAL: No focal neurological deficits. Moves all extremities spontaneously Motor and sensory grossly intact on exam. PSYCH: Normal mood, normal affect. SKIN: Warm, Dry, normal turgor, no rashes or lesions noted on exposed skin - Related Data Allergies/Adverse Reactions: codeine Allergy (Verified 07/21/18 08:30) Iodinated Contrast- Oral and IV Dye Allergy (Verified 07/21/18 08:30) morphine Allergy (Verified 07/21/18 08:30) Sulfa (Sulfonamide Antibiotics) Allergy (Verified 07/21/18 08:30) Past Medical History - Social History Smoking Status: Current Every Day Smoker Family History: Reviewed & Not Pertinent Patient has suicidal ideation: No Patient has homicidal ideation: No - Past Medical History Cardiac Medical History: Reports: Hx Heart Attack, Hx Hypercholesterolemia, Hx Hypertension, Hx Peripheral Vascular Disease Pulmonary Medical History: Reports: Hx Asthma, Hx Bronchitis, Hx COPD Endocrine Medical History: Reports: Hx Diabetes Mellitus Type 2 Renal/ Medical History: Denies: Hx Peritoneal Dialysis Musculoskeletal Medical History: Reports Hx Arthritis Past Surgical History: Reports: Hx Cardiac Catheterization - x stent 1, Hx Cholecystectomy, Hx Coronary Stent, Hx Hysterectomy Physical Exam - Vital signs Vitals: Temp Pulse Resp BP Pulse Ox 98.3 F 104 H 20 126/76 H 98 07/21/18 08:43 07/21/18 08:43 07/21/18 08:43 07/21/18 08:43 07/21/18 08:43 Course - Re-evaluation Re-evalutation: 07/21/18 10:08 Vitals reviewed. Nursing notes reviewed. Chest x-ray was obtained for complaint of cough and shortness of breath. Chest x-ray shows no acute pulmonary process. Patient does smoke and was counseled on smoking cessation. She will increase the use of her albuterol inhaler to 2 puffs every 4 hours and begin taking Claritin or Zyrtec. Patient will not be given steroids because she is a diabetic and is currently oxygenating well on room air and in no respiratory distress. Patient does have an excoriated area likely causing her vaginal bleeding. This is secondary to her acute vaginal yeast infection. Patient was given Diflucan for yeast infection. 07/21/18 10:30 Urinalysis is negative for infection. Patient will be discharged home in stable condition and encouraged to follow with gynecology. Laboratory 07/21/18 09:02 Urine Color YELLOW Urine Appearance CLEAR Urine pH 6.0 Ur Specific [place] 1.030 Urine Protein NEGATIVE Urine Glucose (UA) >=500 H Urine Ketones NEGATIVE Urine Blood NEGATIVE Urine Nitrite NEGATIVE Urine Bilirubin NEGATIVE Urine Urobilinogen NEGATIVE Ur Leukocyte Esterase TRACE H Urine WBC (Auto) 1 Urine RBC (Auto) 0 Urine Bacteria (Auto) TRACE Squamous Epi Cells Auto <1 Urine Mucus (Auto) RARE Urine Ascorbic Acid NEGATIVE Chest X-Ray 07/21/18 08:59 IMPRESSION: No acute abnormality of the lungs in AP projection. - Vital Signs Vital signs: Temp Pulse Resp BP Pulse Ox 98.3 F 104 H 20 126/76 H 98 07/21/18 08:43 07/21/18 08:43 07/21/18 08:43 07/21/18 08:43 07/21/18 08:43 - Laboratory Laboratory results interpreted by me: 07/21/18 09:02 Urine Glucose (UA) >=500 H Ur Leukocyte Esterase TRACE H Discharge - Discharge Clinical Impression: Yeast vaginitis, Wheezing Condition: Stable Disposition: HOME, SELF-CARE Instructions: Vaginal Yeast Infection ([facility]) Additional Instructions: Please return to the emergency department if you have any worsening, or concern of your symptoms. Please return to the emergency department if you develop chest pain, difficulty breathing, severe abdominal pain, or ongoing vomiting. Please follow-up with your primary care physician in 2-3 days and any other recommended physicians. If prescribed, take all medications as directed. If you have any questions or concerns do not hesitate to return the emergency department for evaluation. Use your albuterol inhaler 2 puffs every 4 hours for shortness of breath Quit smoking tobacco Prescriptions: Fluconazole [Diflucan] 150 mg PO ONCE PRN #1 tablet PRN Reason: Forms: Smoking Cessation Education Referrals: [facility] [Provider Group] - Follow up as needed [facility] [Provider Group] - Follow up as needed
[2018-07-21 10:26] LABS: APPEARANCE,URINE CLEAR; BILIRUBIN,URINE NEGATIVE (NEGATIVE); COLOR,URINE YELLOW; GLUCOSE, URINE >=500 mg/dL (NEGATIVE); KETONES,URINE NEGATIVE (NEGATIVE); LEUKOCYTE ESTERASE,URINE TRACE (NEGATIVE); NITRITE,URINE NEGATIVE (NEGATIVE); PROTEIN,URINE NEGATIVE (NEGATIVE); UROBILINOGEN,URINE NEGATIVE mg/dL (<2.0)
[2018-07-21] MEDS ORDERED: FLUCONAZOLE 100 MG TABLET PO ONE (10:55)
[2018-07-21 10:56] VITALS: BP 117/64
== END 2018-07-21 11:00 | disposition home or self-care (01) ==
LOC: ER 08:29
DX: B37.3 Candidiasis of vulva and vagina (principal); J44.9 Chronic obstructive pulmonary disease, unspecified; R05 Cough; R06.02 Shortness of breath; N39.3 Stress incontinence (female) (male); E11.51 Type 2 diabetes mellitus with diabetic peripheral angiopathy without gangrene; I10 Essential (primary) hypertension; F17.200 Nicotine dependence, unspecified, uncomplicated; Z90.710 Acquired absence of both cervix and uterus; Z88.5 Allergy status to narcotic agent; Z91.041 Radiographic dye allergy status; Z88.2 Allergy status to sulfonamides; Z95.5 Presence of coronary angioplasty implant and graft
CPT/HCPCS: 71045; 81001; 99284

== ENCOUNTER 2018-10-04 15:10 | Inpatient (IN) | payer MEDICAID ==
[2018-10-04] MEDS ORDERED: IPRATROPIUM/ALBUTEROL 0.5-2.5 MG/3 ML AMPUL NEB ONE (16:00)
[2018-10-04] MEDS ORDERED: NORMAL SALINE 1000 ML 1,000 ML IV ONE (16:01)
--- NOTE | 2018-10-04 16:06 | ER Document Report ---
ED Medical Screen (RME) - General Chief Complaint: Breathing Difficulty Stated Complaint: ABNORMAL LABS Time Seen by Provider: 10/04/18 15:57 Primary Care Provider: RICHARD RIVERS MD [Primary Care Provider] - Follow up as needed TRAVEL OUTSIDE OF THE U.[place]. IN LAST 30 DAYS: No - HPI Notes: 10/04/18 16:02 Patient is a 53-year-old female with a history of asthma, tobacco abuse, c oronary artery disease with one stent placed (on Plavix), hypertension who presents complaining of cough, shortness breath, wheezing, and diarrhea over the past week. She was diagnosed with pneumonia 4 days ago and was given Zithromax as well as prednisone, but her symptoms have continued/increased. Patient states that she had an Accu-Chek at her family doctor's office this morning and it was in the 400s and was sent here for evaluation. Denies DASH, fever, neck pain, URI, Abd pain, n/v, dysuria, back pain, or rash. I have treated and performed a rapid initial assessment of this patient. A comprehensive ED assessment and evaluation of the patient, analysis of test results and completion of medical decision making process will be conducted by additional ED providers. PHYSICAL EXAMINATION: GENERAL: Well-appearing, well-nourished and in no acute distress. A&Ox4. Answers questions appropriately. LUNGS: wheezing throughout. No retractions. 87-91% on RA in the triage room. HEART: Regular rate and rhythm without murmurs, rubs, gallops. Extremities: No cyanosis, clubbing, or edema b/l. NEUROLOGICAL: Normal speech, normal gait. PSYCH: Normal mood, normal affect. - Related Data Allergies/Adverse Reactions: codeine Allergy (Verified 10/04/18 15:40) Iodinated Contrast- Oral and IV Dye Allergy (Verified 10/04/18 15:40) morphine Allergy (Verified 10/04/18 15:40) Sulfa (Sulfonamide Antibiotics) Allergy (Verified 10/04/18 15:40) Past Medical History - Past Medical History Cardiac Medical History: Reports: Hx Heart Attack, Hx Hypercholesterolemia, Hx Hypertension, Hx Peripheral Vascular Disease Pulmonary Medical History: Reports: Hx Asthma, Hx Bronchitis, Hx COPD Endocrine Medical History: Reports: Hx Diabetes Mellitus Type 2 Renal/ Medical History: Denies: Hx Peritoneal Dialysis Musculoskeltal Medical History: Reports Hx Arthritis Past Surgical History: Reports: Hx Cardiac Catheterization - x stent 1, Hx Cholecystectomy, Hx Coronary Stent, Hx Hysterectomy - Immunizations History of Influenza Vaccine for 01/2017 - 06/2017 Season: Unknown Physical Exam - Vital signs Vitals: Temp Pulse Resp BP Pulse Ox 98.5 F 87 24 H 108/66 88 L 10/04/18 15:46 10/04/18 15:46 10/04/18 15:46 10/04/18 15:46 10/04/18 15:46 Course - Vital Signs Vital signs: Temp Pulse Resp BP Pulse Ox 98.5 F 87 24 H 108/66 88 L 10/04/18 15:46 10/04/18 15:46 10/04/18 15:46 10/04/18 15:46 10/04/18 15:46 Doctor's Discharge - Discharge Referrals: RICHARD RIVERS MD [Primary Care Provider] - Follow up as needed
--- NOTE | 2018-10-04 16:33 | RADIOLOGY REPORT (SQ) ---
EXAM DESCRIPTION: CHEST 2 VIEWS COMPLETED DATE/TIME: 10/04/2018 4:23 pm REASON FOR STUDY: cough, hypoxia COMPARISON: None. EXAM PARAMETERS: NUMBER OF VIEWS: two views TECHNIQUE: Digital Frontal and Lateral radiographic views of the chest acquired. RADIATION DOSE: NA LIMITATIONS: none FINDINGS: LUNGS AND PLEURA: Mild chronic interstitial changes. No infiltrate, effusion, or mass. MEDIASTINUM AND HILAR STRUCTURES: No masses or contour abnormalities. HEART AND VASCULAR STRUCTURES: Heart normal size. No evidence for failure. BONES: No acute findings. HARDWARE: None in the chest. OTHER: No other significant finding. IMPRESSION: Mild chronic lung changes. TECHNICAL DOCUMENTATION: JOB ID: [id number] [employer]- All Rights Reserved Reading location - IP/workstation name: [email or web address]
[2018-10-04 17:32] LABS: ABSOLUTE EOSINOPHILS # (AUTO) 0.2 10^3/uL (0.0-0.6); ABSOLUTE LYMPHOCYTES (AUTO) 1.8 10^3/uL (0.5-4.7); ABSOLUTE MONOCYTES (AUTO) 0.8 10^3/uL (0.1-1.4); ABSOLUTE NEUT (AUTO) 7.6 10^3/uL (1.7-8.2); BASOPHILS % (AUTO) 0.3 % (0-2); EOSINOPHILS % (AUTO) 1.8 % (0-6); HEMATOCRIT 38.3 % (36.0-47.0); HEMOGLOBIN 12.8 g/dL (12.0-15.5); LYMPHOCYTES % (AUTO) 17.5 % (13-45); MEAN CORPUSCULAR HEMOGLOBIN 24.9 pg (27.0-33.4); MEAN CORPUSCULAR HGB CONC 33.3 g/dL (32.0-36.0); MEAN CORPUSCULAR VOLUME 75 fl (80-97); MONOCYTES % (AUTO) 7.8 % (3-13); PLATELET COUNT 277 10^3/uL (150-450); RED BLOOD COUNT 5.13 10^6/uL (3.72-5.28); RED CELL DISTRIBUTION WIDTH 20.7 % (11.5-14.0); SEGMENTED NEUTROPHILS % (AUTO) 72.6 % (42-78); TOTAL CELLS COUNTED % (AUTO) 100 %; WHITE BLOOD COUNT 10.5 10^3/uL (4.0-10.5)
[2018-10-04] MEDS ORDERED: METHYLPREDNISOLONE INJ 125 MG/2 ML SDV IV ONE (17:47)
[2018-10-04] MEDS ORDERED: FAMOTIDINE INJ/PF 20 MG/2 ML SDV IV ONE (17:47)
[2018-10-04] MEDS ORDERED: DIPHENHYDRAMINE HCL 50 MG/ML VIAL IV ONE (17:47)
[2018-10-04 17:48] LABS: PROTHROMBIN TIME 12.6 SEC (11.4-15.4)
[2018-10-04 17:49] LABS: ALANINE AMINOTRANSFERASE 18 U/L (9-52); ALBUMIN 3.8 g/dL (3.5-5.0); ALKALINE PHOSPHATASE 104 U/L (38-126); ANION GAP 10 (5-19); ASPARTATE AMINO TRANSFERASE 12 U/L (14-36); BILIRUBIN,DIRECT 0.3 mg/dL (0.0-0.4); BILIRUBIN,TOTAL 0.8 mg/dL (0.2-1.3); BLOOD UREA NITROGEN 16 mg/dL (7-20); CALCIUM 8.8 mg/dL (8.4-10.2); CARBON DIOXIDE 26 mmol/L (22-30); CHLORIDE 95 mmol/L (98-107); POTASSIUM 4.3 mmol/L (3.6-5.0); SODIUM 130.7 mmol/L (137-145); TOTAL PROTEIN 6.8 g/dL (6.3-8.2)
[2018-10-04 17:58] LABS: GLUCOSE 524 mg/dL (75-110)
[2018-10-04 18:01] LABS: NT PRO BNP 133 pg/mL (5-900)
[2018-10-04 18:03] LABS: TROPONIN I < 0.012 ng/mL
[2018-10-04] MEDS ORDERED: INSULIN REG, HUMAN 100 UNIT/ML 3 ML VIAL (PYX) SUBCUT ONE (18:04)
--- NOTE | 2018-10-04 19:28 | RADIOLOGY REPORT (SQ) ---
EXAM DESCRIPTION: CTA CHEST COMPLETED DATE/TIME: 10/04/2018 7:01 pm REASON FOR STUDY: back pain, hypoxia, h/o PE COMPARISON: Chest radiograph 10/04/2018 TECHNIQUE: CT scan of the chest performed using helical scanning technique with dynamic intravenous contrast injection. Images reviewed with lung, soft tissue and bone windows. Reconstructed coronal and sagittal MPR images reviewed. Additional 3 dimensional post-processing performed to develop Maximal Intensity Projection images (TX P). All images stored on PACS. All CT scanners at this facility use dose modulation, iterative reconstruction, and/or weight based d osing when appropriate to reduce radiation dose to as low as reasonably achievable (ALARA). [facility]: Dose Right [facility]: CareDose [facility]: Dose Right [facility]: Teradose 4D [facility]: MobiTX CONTRAST TYPE AND DOSE: contrast/concentration: Isovue 300.00 mg/ml; Total Contrast Delivered: 67.0 ml; Total Saline Delivered: 107.0 ml Contrast bolus optimized for the pulmonary arteries. Not diagnostic for the aorta. RENAL FUNCTION: BUN 16; creatinine 0.82 RADIATION DOSE: CT Rad equipment meets quality standard of care and radiation dose reduction techniq ues were employed. CTDIvol: 15.0 - 19.8 mGy. DLP: 568 mGy-cm. . LIMITATIONS: None. FINDINGS: LUNGS AND PLEURA: Diffuse ground-glass opacities are of unknown chronicity. No masses, in filtrates, or pneumothorax. No pleural effusions or pleural calcifications. AORTA AND GREAT VESSELS: No aneurysm. Contrast bolus not optimized for the aorta. HEART: No pericardial effusion. Moderate to marked coronary artery calcifications. PULMONARY ARTERIES: No emboli visualized in the main pulmonary arteries or the segmental branches. HILAR AND MEDIASTINAL STRUCTURES: No identified masses or abnormal nodes. HARDWARE: None in the chest. UPPER ABDOMEN: Limited exam. Mild, symmetric nodularity of the adrenal glands. Cholecystectomy koch ges. THYROID AND OTHER SOFT TISSUES: No masses. No adenopathy. BONES: No acute or significant finding. 3D MIPS: Confirm above findings. OTHER: No other significant finding. IMPRESSION: No pulmonary emboli. Background of ground-glass opacities demonstrating an apical basil ar gradient is nonspecific and of unknown chronicity. Differential considerations include atypical i nfection, chronic interstitial disease (such as idiopathic interstitial pneumonia, eosinophilic pneum onia, etc), hypersensitivity pneumonitis, or other. COMMENT: Quality ID # [id number]: Final reports with documentation of one or more dose reduction techniques (e.g., Automated exposure control, adjustment of the mA and/or kV according to patient size, use of iterative reconstruction technique) TECHNICAL DOCUMENTATION: JOB ID: [id number] [employer]- All Rights Reserved Reading location - IP/workstation name: [email or web address]
[2018-10-04] MEDS ORDERED: CEFTRIAXONE 1 GM/D5W RTU 1 GM/50 ML RTUPB IV ONE (20:16)
[2018-10-04] MEDS ORDERED: KETOROLAC TROMETHAMINE INJ/PF 30 MG/1 ML SDV IV ONE (20:17)
--- NOTE | 2018-10-04 20:47 | ER Document Report ---
Entered by WILMAR FIGUEREDO SCRIBE 10/04/18 1217 Acting as scribe for:ALFONSO LOVE DO ED Respiratory Problem - General Chief Complaint: Breathing Difficulty Stated Complaint: ABNORMAL LABS Time Seen by Provider: 10/04/18 15:57 Information source: Patient Notes: 53-year-old female who presents to the emergency department today with complaints of a cough with associated shortness of breath. Patient was seen by her PCP x4 days ago and was started on a Z-Jitendra with prednisone. Patient states she went back today because she was not feeling any better and was found to have a low oxygen saturation. Patient states she has now developed some back pain along with this cough and shortness of breath. Patient states she has had diarrhea since starting the Z-Jitendra and has lost 12 pounds. Patient has a history of PE/DVT is not currently being anticoagulated. Patient denies any fevers, nausea, vomiting, or history of COPD. TRAVEL OUTSIDE OF THE [place] IN LAST 30 DAYS: No - Related Data Allergies/Adverse Reactions: codeine Allergy (Verified 10/04/18 15:40) Iodinated Contrast- Oral and IV Dye Allergy (Verified 10/04/18 15:40) morphine Allergy (Verified 10/04/18 15:40) Sulfa (Sulfonamide Antibiotics) Allergy (Verified 10/04/18 15:40) Past Medical History - General Information source: Patient - Social History Smoking Status: Current Every Day Smoker Cigarette use (# per day): Yes Chew tobacco use (# tins/day): No Frequency of alcohol use: None Drug Abuse: None Family History: Reviewed & Not Pertinent Patient has suicidal ideation: No Patient has homicidal ideation: No - Past Medical History Cardiac Medical History: Reports: Hx Heart Attack, Hx Hypercholesterolemia, Hx Hypertension, Hx Peripheral Vascular Disease Pulmonary Medical History: Reports: Hx Asthma, Hx Bronchitis, Hx COPD Endocrine Medical History: Reports: Hx Diabetes Mellitus Type 2 Musculoskeletal Medical History: Reports Hx Arthritis Past Surgical History: Reports: Hx Cardiac Catheterization - x stent 1, Hx Cholecystectomy, Hx Coronary Stent, Hx Hysterectomy Review of Systems - Review of Systems Constitutional: denies: Fever EENT: No symptoms reported Cardiovascular: No symptoms reported Respiratory: See HPI, Cough, Short of breath Gastrointestinal: denies: Nausea, Vomiting Genitourinary: No symptoms reported Female Genitourinary: No symptoms reported Musculoskeletal: See HPI, Back pain Skin: No symptoms reported Hematologic/Lymphatic: No symptoms reported Neurological/Psychological: No symptoms reported -: Yes All other systems reviewed and negative Physical Exam - Vital signs Vitals: Temp Pulse Resp BP Pulse Ox 98.5 F 87 24 H 108/66 88 L 10/04/18 15:46 10/04/18 15:46 10/04/18 15:46 10/04/18 15:46 10/04/18 15:46 - Notes Notes: PHYSICAL EXAM GENERAL: Alert, interacts well. Appears tired. HEAD: Normocephalic, atraumatic. EYES: Pupils equal, round, and reactive to light. Extraocular movements intact. ENT: Oral mucosa moist, tongue midline. NECK: Full range of motion. Supple. Trachea midline. LUNGS: Diffuse inspiratory rhonchi along with popping and squeaking. No expiratory wheezing. No respiratory distress while on oxygen. HEART: Regular rate and rhythm. No murmurs, gallops, or rubs. ABDOMEN: Soft, non-tender. Non-distended. Bowel sounds present in all 4 quadrants. No guarding, rigidity, or rebound. EXTREMITIES: Moves all 4 extremities spontaneously. No edema, radial and dorsalis pedis pulses 2/4 bilaterally. No cyanosis. NEUROLOGICAL: Alert and oriented x3. Normal speech. PSYCH: Normal affect, normal mood. SKIN: Warm, dry, normal turgor. No rashes or lesions noted. Course - Re-evaluation Re-evalutation: 10/04/18 20:25 CBC unremarkable, coags normal, CMP shows hyponatremia at 130.7, likely pseudohyponatremia given the glucose of 524, CXR was did not show any acute process, given the normal-appearing chest x-ray and of the hypoxia and the history of pulmonary embolism patient had a CT angiogram of the chest ordered, this did not show any pulmonary embolism but did show diffuse groundglass opacities. Patient does have a history of allergic reaction IV contrast so she was pretreated with Pepcid, Benadryl and Solu-Medrol. Solu-Medrol will also obviously benefit the inflammation in her lungs. Infectious source was treated with Rocephin. Patient is complaining of chronic low back pain which is treated with Toradol 15 mg IV. Insulin was given to treat the elevated blood sugar. 10 units were given and patient was also given a liter of normal saline. 10/04/18 20:26 I did discuss the patient with Dr. Mejia who agreed to admit the patient to his service on the medical floor for acute hypoxic respiratory failure. Patient is currently stable on 3 L via nasal cannula. - Vital Signs Vital signs: Temp Pulse Resp BP Pulse Ox 98.5 F 87 33 H 102/59 L 87 L 10/04/18 15:46 10/04/18 15:46 10/04/18 18:00 10/04/18 18:00 10/04/18 18:00 - Laboratory Result Diagrams: 10/04/18 17:15 10/04/18 17:15 Laboratory results interpreted by me: 10/04/18 10/04/18 17:15 17:15 MCV 75 L MCH 24.9 L RDW 20.7 H Sodium 130.7 L Chloride 95 L Glucose 524 H* AST 12 L - EKG Interpretation by Me Additional EKG results interpreted by me: 10/04/18 20:25 EKG shows sinus rhythm at a rate of 77, normal axis, normal intervals, no ST segment elevations or depressions, no T wave inversions per my interpretation. Discharge - Discharge Clinical Impression: Acute on chronic respiratory failure with hypoxia Type 2 diabetes mellitus Qualifiers: Diabetes mellitus [facility] insulin use: with technician terminal and repeater use Diabetes mellitus complication status: with hyperglycemia Qualified Code(s): E11.65 - Type 2 diabetes mellitus with hyperglycemia; Z79.4 - longterm (current) use of insulin Condition: Fair Disposition: ADMITTED INPATIENT Admitting Provider: Roberto (Hospitalist) Unit Admitted: Medical Floor I personally performed the services described in the documentation, reviewed and edited the documentation which was dictated to the scribe in my presence, and it accurately records my words and actions.
[2018-10-04] MEDS ORDERED: DEXTROSE 50%-WATER 25 GM/50 ML DISP.SYRIN IV PRN ×2 (21:10)
[2018-10-04] MEDS ORDERED: ZOLPIDEM TARTRATE 5 MG TABLET PO PRN (21:10)
[2018-10-04] MEDS ORDERED: MAG HYDROX/AL HYDROX/SIMETH SUSP 30 ML UDCUP PO PRN (21:10)
[2018-10-04] MEDS ORDERED: MAGNESIUM HYDROXIDE SUSP 30 ML UDCUP PO PRN (21:10)
[2018-10-04] MEDS ORDERED: ONDANSETRON HCL INJ/PF 4 MG/2 ML SDV IV PRN (21:10)
[2018-10-04] MEDS ORDERED: DEXTROSE 40% GEL 15 GM TUBE PO PRN ×2 (21:10)
[2018-10-04] MEDS ORDERED: GLUCAGON,HUMAN RECOMB 1 MG INJ IM PRN (21:10)
[2018-10-04] MEDS ORDERED: ACETAMINOPHEN 325 MG TABLET PO PRN (21:16)
[2018-10-04] MEDS ORDERED: NICOTINE 21 MG/24 HR PATCH.TD24 TD PRN (21:16)
[2018-10-04] MEDS ORDERED: LEVALBUTEROL HCL NEB 0.63 MG/3 ML AMPUL NEB PRN (21:16)
[2018-10-04] MEDS ORDERED: GUAIFENESIN SYRP 200 MG/10 ML UDC PO PRN (21:18)
[2018-10-04] MEDS ORDERED: AZITHROMYCIN INJ 500 MG VIAL IV ONE (21:19)
[2018-10-04] MEDS ORDERED: NALBUPHINE HCL INJ 10 MG/1 ML AMPULE IV PRN (21:27)
[2018-10-04 21:42] LABS: VENOUS BLOOD BASE EXCESS 0.9 mmol/L; VENOUS BLOOD HCO3 25.6 mmol/L (20-32); VENOUS BLOOD PCO2 40.9 mmHg (35-63); VENOUS BLOOD PH 7.41 (7.30-7.42)
[2018-10-04] MEDS ORDERED: AZITHROMYCIN 500 MG in DEXTROSE 5%-WATER 250 ML IV ONE (22:00)
[2018-10-04] MEDS: GABAPENTIN 300 MG CAPSULE PO SCH (22:18)
[2018-10-04] MEDS: ATORVASTATIN CALCIUM 80 MG TABLET PO SCH (22:18)
[2018-10-04] MEDS: HEPARIN SOD (PORCINE) 5,000 UNIT/ML 1 ML SYRINGE SUBCUT SCH (22:19)
[2018-10-04] MEDS: CARVEDILOL 12.5 MG TABLET PO SCH (22:29)
[2018-10-04 23:20] LABS: APPEARANCE,URINE CLEAR; BILIRUBIN,URINE NEGATIVE (NEGATIVE); COLOR,URINE YELLOW; GLUCOSE, URINE >=500 mg/dL (NEGATIVE); KETONES,URINE NEGATIVE (NEGATIVE); LEUKOCYTE ESTERASE,URINE NEGATIVE (NEGATIVE); NITRITE,URINE NEGATIVE (NEGATIVE); PROTEIN,URINE NEGATIVE (NEGATIVE); UROBILINOGEN,URINE NEGATIVE mg/dL (<2.0)
--- NOTE | 2018-10-04 23:35 | EKG REPORT ---
SEVERITY:- BORDERLINE ECG - SINUS RHYTHM BORDERLINE T WAVE ABNORMALITIES : Confirmed by: Haley Alonzo MD 04-Oct-2018 23:35:20
[2018-10-04] MEDS: IPRATROPIUM BROMIDE 0.02% NEB 0.5 MG/2.5 ML AMPUL NEB SCH (23:59)
[2018-10-04] MEDS: LEVALBUTEROL HCL NEB 1.25 MG/3 ML AMPUL NEB SCH (23:59)
[2018-10-05 00:25] LABS: ARTERIAL BLOOD BASE EXCESS 2.7 mmol/L; ARTERIAL BLOOD H2CO3 1.27 mmol/L (1.05-1.35); ARTERIAL BLOOD HCO3 27.4 mmol/L (20-24); ARTERIAL BLOOD O2 SATURATION 91.8 % (94-98); ARTERIAL BLOOD PCO2 42.3 mmHg (35-45); ARTERIAL BLOOD PH 7.43 (7.35-7.45); ARTERIAL BLOOD PO2 60.5 mmHg (80-100); ARTERIAL BLOOD TOTAL CO2 28.7 mmol/L (21-25)
[2018-10-05 00:32] LABS: ARTERIAL BLOOD FIO2 32%
[2018-10-05] MEDS: METHYLPREDNISOLONE INJ 40 MG/1 ML SDV IV SCH ×5 (00:40→23:04)
[2018-10-05] MEDS: RINGERS SOLUTION,LACTATED 1,000 ML IV PRN ×2 (00:43→07:35)
[2018-10-05] MEDS: INSULIN LISPRO 100 UNIT/ML 3 ML VIAL SUBCUT PRN ×4 (00:50→17:16)
[2018-10-05] MEDS: GABAPENTIN 300 MG CAPSULE PO SCH ×3 (05:10→21:48)
[2018-10-05] MEDS: PANTOPRAZOLE SODIUM 40 MG TABLET.DR PO SCH (05:10)
[2018-10-05] MEDS: HEPARIN SOD (PORCINE) 5,000 UNIT/ML 1 ML SYRINGE SUBCUT SCH ×3 (05:10→21:48)
[2018-10-05] MEDS: LEVOTHYROXINE SODIUM 0.05 MG TABLET PO SCH (05:10)
--- NOTE | 2018-10-05 06:49 | PDOC H&P ---
History of Present Illness Admission Date/PCP: 10/04/2017 20:30 RICHARD RIVERS MD Patient complains of: Dyspnea History of Present Illness: JIM MONK is a 53 year old female who presented to the emergency room with a 7-day history of dyspnea. She admits progressively worsening dyspnea over the last 4 days despite outpatient treatment. She was seen by urgent care 4 days ago and started on Zithromax and prednisone for a pneumonia. Despite treatment her dyspnea has progressively worsened to being moderately severe and she returned to urgent care today, where she was found to be hypoxic and hyperglycemic, thus she was sent to the emergency room for further evaluation. She further admits associated symptoms of a moderate productive cough (yellowish sputum), severe dyspnea on exertion, wheezing and a few episodes of loose stools. She admits prior similar episodes related to her COPD/asthma and further admits that she continues to smoke cigarettes despite her symptoms. She denies identification of any additional aggravating or ameliorating factors for her acute dyspnea. In the emergency room she was found to have an O2 sat in the low 80s at rest and was treated with supplemental oxygen and nebulizer therapy as well as intravenous steroids. Her chest x-ray was negative and a CTA of the chest revealed no evidence of pulmonary emboli. Patient was subsequently admit pat to hospital for further evaluation and treatment. Past Medical History Cardiac Medical History: Reports: Coronary Artery Disease, Myocardial Infarction, Hyperlipidema, Hypertension, Peripheral Vascular Disease, Pulmonary Embolism - Previously on long-term anticoagulation Denies: Atrial Fibrillation, Congestive Heart Failure Pulmonary Medical History: Reports: Asthma, Bronchitis, Chronic Obstructive Pulmonary Disease (COPD), Pneumonia, Respiratory Failure EENT Medical History: Denies: Cataracts, Ears - Hearing aids Neurological Medical History: Denies: Hemorrhagic CVA, Ischemic CVA, Multiple Sclerosis, Seizures Endocrine Medical History: Reports: Diabetes Mellitus Type 2, Hypothyroidism Denies: Diabetes Mellitus Type 1, Hyperthyroidism, Obesity Renal/ Medical History: Denies: Chronic Kidney Disease, Nephrolithiasis Malignancy Medical History: Reports: Other - Oral cancer GI Medical History: Denies: Cirrhosis, Crohn's Disease, Hepatitis, Ulcerative Colitis Musculoskeltal Medical History: Reports: Arthritis Denies: Fibromyalgia, Gout Skin Medical History: Denies: Eczema, Psoriasis Psychiatric Medical History: Reports: Tobacco Dependency Denies: Alcohol Dependency, Substance Abuse Traumatic Medical History: Reports: None Hematology: Denies: Anemia, Bleeding Tendencies Infectious Medical History: Reports: None Past Surgical History Past Surgical History: Reports: Cardiac Catheterization, Cholecystectomy, Coronary Stent, Hysterectomy, Knee Replacement, Other - Oral cancer surgery Social History Information Source: Patient Lives with: Family Smoking Status: Current Every Day Smoker Frequency of Alcohol Use: Occasional Hx Recreational Drug Use: No Drugs: None Hx Prescription Drug Abuse: No - Advance Directive Resuscitation Status: Full Code Surrogate healthcare decision maker:: Zakia Mcbride Family History Family History: CAD, DM, Hypertension, Malignancy Parental Family History Reviewed: Yes Children Family History Reviewed: No Sibling(s) Family History Reviewed.: Yes Medication/Allergy Home Medications: Clopidogrel Bisulfate [Plavix 75 mg Tablet] 75 mg PO DAILY 03/23/18 Hydrochlorothiazide 12.5 mg PO DAILY 03/23/18 Lisinopril [Prinivil] 5 mg PO DAILY 03/23/18 Metformin HCl 500 mg PO BIDBS 03/23/18 Albuterol Sulfate [Proair HFA Inhalation Aerosol 8.5 gm MDI] 2 puff IH Q6HP PRN 10/04/18 Albuterol Sulfate [Ventolin 0.083% Neb 2.5 mg/3 ml Ampul] 1 vial NEB RTQ6HP PRN 10/04/18 Alprazolam 1 mg PO Q6HP PRN 10/04/18 Atorvastatin Calcium [Lipitor 80 mg Tablet] 80 mg PO QHS 10/04/18 Azithromycin [Zithromax 250 mg Tablet] 250 mg PO DAILY MDD last dose 10/0410/04/18 Carvedilol [Coreg 12.5 mg Tablet] 12.5 mg PO Q12 10/04/18 Citalopram Hydrobromide [Celexa 40 mg Tablet] 40 mg PO DAILY 10/04/18 Fluconazole [Diflucan] 150 mg PO Q3DAYS MDD last dose 10/0610/04/18 Gabapentin [Neurontin 300 mg Capsule] 600 mg PO Q8 10/04/18 Levothyroxine Sodium [Synthroid 50 Mcg Tablet] 50 mcg PO Q6AM 10/04/18 Magnesium Oxide [Mag-Ox 400 mg Tablet] 400 mg PO DAILY 10/04/18 Omeprazole 20 mg PO DAILY 10/04/18 Prednisone [Deltasone 20 mg Tablet] 40 mg PO DAILY MDD last dose 6/17 06/17/19 Allergies/Adverse Reactions: codeine Allergy (Verified 10/04/18 15:40) Iodinated Contrast- Oral and IV Dye Allergy (Verified 10/04/18 15:40) morphine Allergy (Verified 10/04/18 15:40) Sulfa (Sulfonamide Antibiotics) Allergy (Verified 10/04/18 15:40) Review of Systems Constitutional: ABSENT: chills, fever(s) Eyes: ABSENT: visual disturbances, other - Eye pain Ears: ABSENT: hearing changes, other - Ear pain Nose, Mouth, and Throat: ABSENT: mouth pain, sore throat Cardiovascular: PRESENT: as per HPI, dyspnea on exertion. ABSENT: chest pain, orthropnea, palpitations Respiratory: PRESENT: as per HPI, cough, dyspnea. ABSENT: hemoptysis, sputum Gastrointestinal: PRESENT: as per HPI, diarrhea. ABSENT: abdominal pain, constipation, nausea, vomiting Genitourinary: ABSENT: dysuria, hematuria Integumentary: ABSENT: pruritus, rash Neurological: ABSENT: confusion, convulsions, focal weakness, memory loss, syncope Psychiatric: ABSENT: anxiety, depression Endocrine: ABSENT: cold intolerance, heat intolerance Hematologic/Lymphatic: ABSENT: easy bleeding, easy bruising Physical Exam Vital Signs: Temp Pulse Resp BP Pulse Ox 98.5 F 87 33 H 102/59 L 87 L 10/04/18 15:46 10/04/18 15:46 10/04/18 18:00 10/04/18 18:00 10/04/18 18:00 Intake & Output 10/02/18 10/03/18 10/04/18 23:59 23:59 23:59 Weight 63.503 kg General appearance: PRESENT: cooperative, mild distress - Minimal dyspnea, well- developed Head exam: PRESENT: atraumatic, normocephalic Eye exam: ABSENT: conjunctival injection, scleral icterus Ear exam: PRESENT: normal external ear exam. ABSENT: bleeding, drainage Mouth exam: PRESENT: dry mucosa, neck supple Neck exam: ABSENT: JVD, thyromegaly, tracheal deviation Respiratory exam: PRESENT: accessory muscle use - Minimal accessory muscle use, decreased breath sounds - Mildly decreased breath sounds throughout all cherry consistent with mild to moderate COPD, prolonged expiratory phas - Moderately prolonged expiratory phase in all cherry, rhonchi - Rare scattered rhonchi, symmetrical, tachypnea, wheezes - Expiratory wheezes present throughout all cherry. ABSENT: rales, retraction Cardiovascular exam: PRESENT: RRR. ABSENT: clicks, gallop, rubs Pulses: PRESENT: normal radial pulses, normal dorsalis pedis pul Vascular exam: PRESENT: normal capillary refill. ABSENT: pallor GI/Abdominal exam: PRESENT: normal bowel sounds, soft Rectal exam: PRESENT: deferred Extremities exam: ABSENT: joint swelling, pedal edema Musculoskeletal exam: PRESENT: full ROM, normal inspection Neurological exam: PRESENT: alert, oriented to person, oriented to place, oriented to time, oriented to situation, CN II-XII grossly intact. ABSENT: motor sensory deficit Psychiatric exam: PRESENT: appropriate affect, normal mood Skin exam: PRESENT: dry, intact, warm. ABSENT: jaundice, rash, urticaria Results Laboratory Results: 10/04/18 17:15 10/04/18 17:15 10/04/18 10/04/18 17:15 17:15 WBC 10.5 RBC 5.13 Hgb 12.8 Hct 38.3 MCV 75 L MCH 24.9 L MCHC 33.3 RDW 20.7 H Plt Count 277 Seg Neutrophils % 72.6 Lymphocytes % 17.5 Monocytes % 7.8 Eosinophils % 1.8 Basophils % 0.3 Absolute Neutrophils 7.6 Absolute Lymphocytes 1.8 Absolute Monocytes 0.8 Absolute Eosinophils 0.2 Absolute Basophils 0.0 Sodium 130.7 L Potassium 4.3 Chloride 95 L Carbon Dioxide 26 Anion Gap 10 BUN 16 Creatinine 0.82 Est GFR ( Amer) > 60 Est GFR (Non-Af Amer) > 60 Glucose 524 H* Calcium 8.8 Total Bilirubin 0.8 AST 12 L ALT 18 Alkaline Phosphatase 104 Total Protein 6.8 Albumin 3.8 10/04/18 17:15 Troponin I < 0.012 NT-Pro-B Natriuret Pep 133 Impressions: Chest X-Ray 10/04/18 16:01 IMPRESSION: Mild chronic lung changes. Chest/Abdomen CTA 10/04/18 17:36 IMPRESSION: No pulmonary emboli. Background of ground-glass opacities demonstrating an apical basilar gradient is nonspecific and of unknown chronicity. Differential considerations include atypical infection, chronic interstitial disease (such as idiopathic interstitial pneumonia, eosinophilic pneumonia, etc), hypersensitivity pneumonitis, or other. Assessment and Plan - Diagnosis (1) Acute exacerbation of COPD with asthma Is this a current diagnosis for this admission?: Yes Plan: Patient be treated with an aggressive pulmonary toilet utilizing nebulized Xopenex, Atrovent and Pulmicort. She will also receive supplemental oxygen and intravenous Solu-Medrol. Daily CBC, metabolic profile and magnesium levels will be followed as part of evaluation of her therapeutic response and monitoring of treatment. For any pain associated with her cough for dyspnea patient will receive Nubain 10 mg IV every 3 hours as needed. (2) Acute respiratory failure with hypoxia Is this a current diagnosis for this admission?: Yes Plan: Patient will be provided with supplemental oxygen to maintain an O2 sat in the 90 to 94% range. Her O2 saturation will be monitored throughout her hospital course. Noninvasive airway pressure support devices may be used if required. (3) Diabetes mellitus type 2 in nonobese Is this a current diagnosis for this admission?: Yes Plan: Patient will be continued on her current diabetic therapy. Hemoglobin A1c will be obtained to evaluate the efficacy of her current therapy. Patient will have a before meals and at bedtime Accu-Chek with sliding scale insulin coverage for hyperglycemia. (4) Coronary artery disease Qualifiers: Coronary Disease-Associated Artery/Lesion type: [place] artery [place] vs. transplanted heart: beaver heart Associated angina: without angina Qualified Code(s): I25.10 - Atherosclerotic heart disease of beaver coronary artery without angina pectoris Is this a current diagnosis for this admission?: Yes Plan: Patient will be continued on her current cardiac medications throughout her hospital course. (5) Tobacco use disorder, severe, dependence Is this a current diagnosis for this admission?: Yes Plan: Smoking cessation is advised and counseled briefly. A nicotine replacement patch is available for the patient's use. (6) Hypothyroidism Qualifiers: Hypothyroidism type: unspecified Qualified Code(s): E03.9 - Hypothyroidism, unspecified Is this a current diagnosis for this admission?: Yes Plan: Patient will be continued on her current thyroid replacement therapy. A thyroid profile will be obtained to evaluate the efficacy of her therapy. - Time Time Spent with patient: 25-34 minutes Smoking Cessation Education: 3 to 10 minutes Medications reviewed and adjusted accordingly: Yes Anticipated discharge: Home - Inpatient Certification Based on my medical assessment, after consideration of the patient's comorbidities, presenting symptoms, or acuity I expect that the services needed warrant INPATIENT care.: Yes I certify that my determination is in accordance with my understanding of Medicare's requirements for reasonable and necessary INPATIENT services [42 CFR 412.3e].: Yes Medical Necessity: Failure to Improve With Outpatient Therapy, Significant Comorbidiites Make Outpatient Treatment Too Risky, Need Close Monitoring Due to Risk of Patient Decompensation, Need for Nebulizer Therapy and Monitoring of Response, Risk of Complication if Not Cared For in Hospital
--- NOTE | 2018-10-05 06:50 | ADVANCED CARE ---
- Diagnosis (1) Acute exacerbation of COPD with asthma Diagnosis Current: Yes (2) Acute respiratory failure with hypoxia Diagnosis Current: Yes (3) Diabetes mellitus type 2 in nonobese Diagnosis Current: Yes (4) Coronary artery disease Diagnosis Current: Yes (5) Tobacco use disorder, severe, dependence Diagnosis Current: Yes (6) Hypothyroidism Diagnosis Current: Yes Attendance: Patient and myself Resuscitation Status: Full Code Discussion: Patient wishes to be full CODE STATUS for any cardiac or respiratory arrest that may occur during her hospital stay. Furthermore she wishes Zakia Mcbride, her daughter, to be her designated surrogate medical decision maker. Care Planning Goals: 1. Patient is to be full CODE STATUS. 2. Zakia Mcbride is the patient's designated surrogate medical decision maker. Document(s) Completed: Following have been entered into the patient's medical records and orders via EMR entry: 1. Patient is to be full CODE STATUS. 2. Zakia Mcbride is the patient's designated surrogate medical decision maker. Time Spent: 15 minutes
[2018-10-05 07:05] LABS: HEMATOCRIT 36.9 % (36.0-47.0); HEMOGLOBIN 12.4 g/dL (12.0-15.5); MEAN CORPUSCULAR HEMOGLOBIN 24.8 pg (27.0-33.4); MEAN CORPUSCULAR HGB CONC 33.5 g/dL (32.0-36.0); MEAN CORPUSCULAR VOLUME 74 fl (80-97); PLATELET COUNT 261 10^3/uL (150-450); RED BLOOD COUNT 4.98 10^6/uL (3.72-5.28); RED CELL DISTRIBUTION WIDTH 20.3 % (11.5-14.0); WHITE BLOOD COUNT 11.4 10^3/uL (4.0-10.5)
[2018-10-05 07:37] LABS: ANION GAP 8 (5-19); BLOOD UREA NITROGEN 20 mg/dL (7-20); CARBON DIOXIDE 28 mmol/L (22-30); CHLORIDE 98 mmol/L (98-107); CHOLESTEROL 93.46 mg/dL (0-200); GLUCOSE 275 mg/dL (75-110); POTASSIUM 4.9 mmol/L (3.6-5.0); SODIUM 133.6 mmol/L (137-145); TRIGLYCERIDES 144 mg/dL (<150)
[2018-10-05 07:49] LABS: DIRECT LDL 46 mg/dL (<100)
[2018-10-05] MEDS: IPRATROPIUM BROMIDE 0.02% NEB 0.5 MG/2.5 ML AMPUL NEB SCH (07:54)
[2018-10-05] MEDS: LEVALBUTEROL HCL NEB 1.25 MG/3 ML AMPUL NEB SCH (07:54)
[2018-10-05] MEDS: BUDESONIDE NEB 0.5 MG/2 ML AMPUL NEB SCH ×2 (07:54→19:51)
[2018-10-05 07:55] LABS: FREE T3 2.85 pg/mL (2.77-5.27); FREE T4 (FREE THYROXINE) 1.42 ng/dL (0.78-2.19)
[2018-10-05 08:09] LABS: THYROID STIMULATING HORMONE 1.13 uIU/mL (0.47-4.68)
[2018-10-05] MEDS: METFORMIN HCL 500 MG TABLET PO SCH ×2 (08:37→17:16)
[2018-10-05] MEDS ORDERED: GLUCAGON,HUMAN RECOMB 1 MG INJ IM PRN ×2 (09:11→09:18)
[2018-10-05] MEDS ORDERED: DEXTROSE 40% GEL 15 GM TUBE PO PRN ×4 (09:11→09:18)
[2018-10-05] MEDS ORDERED: DEXTROSE 50%-WATER 25 GM/50 ML DISP.SYRIN IV PRN ×4 (09:11→09:18)
[2018-10-05] MEDS: DOCUSATE SODIUM 100 MG CAPSULE PO SCH ×2 (10:05→17:16)
[2018-10-05] MEDS: CITALOPRAM HYDROBROMIDE 20 MG TABLET PO SCH (10:05)
[2018-10-05] MEDS: CLOPIDOGREL BISULFATE 75 MG TABLET PO SCH (10:05)
[2018-10-05] MEDS: LISINOPRIL 5 MG TABLET PO SCH (10:05)
[2018-10-05] MEDS: HYDROCHLOROTHIAZIDE 12.5 MG TABLET PO SCH (10:06)
[2018-10-05] MEDS: TIOTROPIUM BROMIDE DPI 5 CAP/KIT (18 MCG/CAP) IH SCH (10:06)
[2018-10-05] MEDS: FLUCONAZOLE 100 MG TABLET PO SCH (10:06)
[2018-10-05] MEDS: CARVEDILOL 12.5 MG TABLET PO SCH ×2 (10:06→21:48)
[2018-10-05] MEDS: INSULIN GLARGINE,HUM.REC.ANLOG 1,000 UNIT/10 ML VIAL SUBCUT SCH ×2 (10:06→21:48)
[2018-10-05] MEDS: ALPRAZOLAM 0.5 MG TABLET PO PRN ×2 (10:12→23:04)
[2018-10-05] MEDS: IPRATROPIUM/ALBUTEROL 0.5-2.5 MG/3 ML AMPUL NEB SCH ×3 (12:04→19:51)
--- NOTE | 2018-10-05 13:38 | Progress Note ---
Provider Note Provider Note: JIM MONK is a 53 year old female who presented to the emergency room with a 7-day history of dyspnea. She admits progressively worsening dyspnea over the last 4 days despite outpatient treatment. She was seen by urgent care 4 days ago and started on Zithromax and prednisone for a pneumonia. Despite treatment her dyspnea has progressively worsened to being moderately severe and she returned to urgent care today, where she was found to be hypoxic and hyperglycemic, thus she was sent to the emergency room for further evaluation. She further admits associated symptoms of a moderate productive cough (yellowish sputum), severe dyspnea on exertion, wheezing and a few episodes of loose stools. She admits prior similar episodes related to her COPD/asthma and further admits that she continues to smoke cigarettes despite her symptoms. She denies identification of any additional aggravating or ameliorating factors for her acute dyspnea. In the emergency room she was found to have an O2 sat in the low 80s at rest and was treated with supplemental oxygen and nebulizer therapy as well as intravenous steroids. Her chest x-ray was negative and a CTA of the chest revealed no evidence of pulmonary emboli. Patient was subsequently admitted to hospital for further evaluation and treatment. 10/05/2018. Seen comfortably resting in bed, no apparent distress, however still on supplemental oxygen, significant expiratory and extra wheezes on pulmonary examination. Heavy smoker however does not want a NicoDerm patch. Has never been diagnosed with COPD, does not use home oxygen. She denies any fever, chest pain, nausea, vomiting, diarrhea, constipation or any urinary symptoms. She is on nebs, PRN BiPAP, supplemental oxygen, IV steroids. She got 1 dose of ceftriaxone and azithromycin in ED. Will continue current treatment and reevaluate tomorrow.
[2018-10-05] MEDS: ATORVASTATIN CALCIUM 80 MG TABLET PO SCH (21:48)
[2018-10-05] MEDS ORDERED: INSULIN GLARGINE,HUM.REC.ANLOG 1,000 UNIT/10 ML VIAL SUBCUT SCH (22:00)
[2018-10-06 05:09] LABS: HEMATOCRIT 39.1 % (36.0-47.0); HEMOGLOBIN 12.9 g/dL (12.0-15.5); MEAN CORPUSCULAR HEMOGLOBIN 24.8 pg (27.0-33.4); MEAN CORPUSCULAR HGB CONC 33.1 g/dL (32.0-36.0); MEAN CORPUSCULAR VOLUME 75 fl (80-97); PLATELET COUNT 269 10^3/uL (150-450); RED BLOOD COUNT 5.21 10^6/uL (3.72-5.28); RED CELL DISTRIBUTION WIDTH 21.7 % (11.5-14.0)
[2018-10-06 05:36] LABS: ANION GAP 10 (5-19); BLOOD UREA NITROGEN 24 mg/dL (7-20); CALCIUM 9.3 mg/dL (8.4-10.2); CARBON DIOXIDE 27 mmol/L (22-30); CHLORIDE 98 mmol/L (98-107); GLUCOSE 295 mg/dL (75-110); POTASSIUM 4.6 mmol/L (3.6-5.0); SODIUM 135.4 mmol/L (137-145)
[2018-10-06] MEDS: HEPARIN SOD (PORCINE) 5,000 UNIT/ML 1 ML SYRINGE SUBCUT SCH ×3 (05:56→21:54)
[2018-10-06] MEDS: METHYLPREDNISOLONE INJ 40 MG/1 ML SDV IV SCH ×3 (06:02→17:10)
[2018-10-06] MEDS: PANTOPRAZOLE SODIUM 40 MG TABLET.DR PO SCH (06:02)
[2018-10-06] MEDS: GABAPENTIN 300 MG CAPSULE PO SCH ×3 (06:02→21:53)
[2018-10-06] MEDS: LEVOTHYROXINE SODIUM 0.05 MG TABLET PO SCH (06:02)
[2018-10-06] MEDS: IPRATROPIUM/ALBUTEROL 0.5-2.5 MG/3 ML AMPUL NEB SCH ×3 (07:44→20:10)
[2018-10-06] MEDS: BUDESONIDE NEB 0.5 MG/2 ML AMPUL NEB SCH ×2 (07:44→20:10)
[2018-10-06] MEDS: INSULIN LISPRO 100 UNIT/ML 3 ML VIAL SUBCUT PRN ×2 (08:15→17:10)
[2018-10-06] MEDS: METFORMIN HCL 500 MG TABLET PO SCH ×2 (08:15→17:09)
[2018-10-06] MEDS: DOCUSATE SODIUM 100 MG CAPSULE PO SCH ×2 (09:44→17:10)
[2018-10-06] MEDS: CARVEDILOL 12.5 MG TABLET PO SCH ×2 (09:50→22:25)
[2018-10-06] MEDS: FLUCONAZOLE 100 MG TABLET PO SCH (09:50)
[2018-10-06] MEDS: CITALOPRAM HYDROBROMIDE 20 MG TABLET PO SCH (09:50)
[2018-10-06] MEDS: HYDROCHLOROTHIAZIDE 12.5 MG TABLET PO SCH (09:50)
[2018-10-06] MEDS: LISINOPRIL 5 MG TABLET PO SCH (09:51)
[2018-10-06] MEDS: CLOPIDOGREL BISULFATE 75 MG TABLET PO SCH (09:51)
[2018-10-06] MEDS: INSULIN GLARGINE,HUM.REC.ANLOG 1,000 UNIT/10 ML VIAL SUBCUT SCH ×2 (09:51→21:54)
[2018-10-06] MEDS: TIOTROPIUM BROMIDE DPI 5 CAP/KIT (18 MCG/CAP) IH SCH (09:51)
[2018-10-06] MEDS ORDERED: DEXTROSE 50%-WATER 25 GM/50 ML DISP.SYRIN IV PRN ×2 (13:54)
[2018-10-06] MEDS ORDERED: GLUCAGON,HUMAN RECOMB 1 MG INJ IM PRN (13:54)
[2018-10-06] MEDS ORDERED: DEXTROSE 40% GEL 15 GM TUBE PO PRN ×2 (13:54)
--- NOTE | 2018-10-06 14:09 | PDOC PROGRESS REPORT ---
Subjective Progress Note for:: 10/06/18 Subjective:: JIM MONK is a 53 year old female who presented to the emergency room with a 7-day history of dyspnea. She admits progressively worsening dyspnea over the last 4 days despite outpatient treatment. She was seen by urgent care 4 days ago and started on Zithromax and prednisone for a pneumonia. Despite treatment her dyspnea has progressively worsened to being moderately severe and she returned to urgent care today, where she was found to be hypoxic and hyperg lycemic, thus she was sent to the emergency room for further evaluation. She further admits associated symptoms of a moderate productive cough (yellowish sputum), severe dyspnea on exertion, wheezing and a few episodes of loose stools. She admits prior similar episodes related to her COPD/asthma and further admits that she continues to smoke cigarettes despite her symptoms. She denies identification of any additional aggravating or ameliorating factors for her acute dyspnea. In the emergency room she was found to have an O2 sat in the low 80s at rest and was treated with supplemental oxygen and nebulizer therapy as well as intravenous steroids. Her chest x-ray was negative and a CTA of the chest revealed no evidence of pulmonary emboli. Patient was subsequently admitted to hospital for further evaluation and treatment. 10/05/2018. Seen comfortably resting in bed, no apparent distress, however still on supplemental oxygen, significant expiratory and extra wheezes on pulmonary examination. Heavy smoker however does not want a NicoDerm patch. Has never been diagnosed with COPD, does not use home oxygen. She denies any fever, chest pain, nausea, vomiting, diarrhea, constipation or any urinary symptoms. She is on nebs, PRN BiPAP, supplemental oxygen, IV steroids. She got 1 dose of ceftriaxone and azithromycin in ED. Will continue current treatment and reevaluate tomorrow. 06/08/2018. No acute events overnight, still dependent on supplemental oxygen with wheezing on respiratory examination, feeling better than yesterday. Denies any fever, chills, nausea, vomiting, diarrhea, constipation or any urinary symptoms. Reason For Visit: ACUTE EXACERBATION OF COPD, ACUTE RESPIRATORY Physical Exam Vital Signs: Temp Pulse Resp BP Pulse Ox 97.8 F 73 16 107/59 L 89 L 10/05/18 20:33 10/06/18 11:48 10/06/18 11:48 10/05/18 20:33 10/06/18 11:48 Intake & Output 10/05/18 10/06/18 10/07/18 06:59 06:59 06:59 Intake Total 1500 1820 Balance 1500 1820 Weight 66.6 kg 66.3 kg General appearance: PRESENT: no acute distress, well-developed, well-nourished Head exam: PRESENT: atraumatic, normocephalic Eye exam: PRESENT: conjunctiva pink, EOMI, PERRLA. ABSENT: scleral icterus Ear exam: PRESENT: normal external ear exam Mouth exam: PRESENT: moist, tongue midline Neck exam: ABSENT: carotid bruit, JVD, lymphadenopathy, thyromegaly Respiratory exam: PRESENT: wheezes. ABSENT: rales, rhonchi Cardiovascular exam: PRESENT: RRR. ABSENT: diastolic murmur, rubs, systolic murmur Pulses: PRESENT: normal dorsalis pedis pul Vascular exam: PRESENT: normal capillary refill GI/Abdominal exam: PRESENT: normal bowel sounds, soft. ABSENT: distended, guarding, mass, organolmegaly, rebound, tenderness Rectal exam: PRESENT: deferred Extremities exam: PRESENT: full ROM. ABSENT: calf tenderness, clubbing, pedal edema Neurological exam: PRESENT: alert, awake, oriented to person, oriented to place, oriented to time, oriented to situation, CN II-XII grossly intact. ABSENT: motor sensory deficit Psychiatric exam: PRESENT: appropriate affect, normal mood. ABSENT: homicidal ideation, suicidal ideation Skin exam: PRESENT: dry, intact, warm. ABSENT: cyanosis, rash Results Laboratory Results: 10/06/18 04:39 10/06/18 04:39 10/06/18 10/06/18 04:39 04:39 WBC 17.0 H RBC 5.21 Hgb 12.9 Hct 39.1 MCV 75 L MCH 24.8 L MCHC 33.1 RDW 21.7 H Plt Count 269 Sodium 135.4 L Potassium 4.6 Chloride 98 Carbon Dioxide 27 Anion Gap 10 BUN 24 H Creatinine 0.70 Est GFR ( Amer) > 60 Est GFR (Non-Af Amer) > 60 Glucose 295 H Calcium 9.3 Magnesium 1.9 10/04/18 17:15 Troponin I < 0.012 NT-Pro-B Natriuret Pep 133 Impressions: Chest X-Ray 10/04/18 16:01 IMPRESSION: Mild chronic lung changes. Chest/Abdomen CTA 10/04/18 17:36 IMPRESSION: No pulmonary emboli. Background of ground-glass opacities demonstrating an apical basilar gradient is nonspecific and of unknown chronicity. Differential considerations include atypical infection, chronic interstitial disease (such as idiopathic interstitial pneumonia, eosinophilic pneumonia, etc), hypersensitivity pneumonitis, or other. Assessment and Plan - Diagnosis (1) Acute on chronic respiratory failure with hypoxia Is this a current diagnosis for this admission?: Yes Plan: COPD exacerbation. Not on home O2. Improving but is still dependent on supplemental oxygen with wheezing on physical examination. 10/06/2018. SBP 125656, pulse 70s, RR 1316, SPO2 81-94 % on 2 L NC. DuoNeb's, PRN BiPAP, IV steroids, empiric IV antibiotics, supplemental oxygen, LABA/LAMA. May need to be sent home on home O2. Will reassess tomorrow. (2) COPD exacerbation Is this a current diagnosis for this admission?: No Plan: As per #1. (3) Coronary artery disease Qualifiers: Coronary Disease-Associated Artery/Lesion type: [place] artery [place] vs. transplanted heart: [place] heart Associated angina: without angina Qualified Code(s): I25.10 - Atherosclerotic heart disease of [place] coronary artery without angina pectoris Is this a current diagnosis for this admission?: Yes Plan: Status post PCI 2010 04 stent placement. Denies any anginal pain. No recent echo available. Continue antiplatelets, beta-blockers, GWEN, statins. Cardiac diet. (4) Diabetes mellitus type 2 in nonobese Is this a current diagnosis for this admission?: Yes Plan: Not controlled. A1c 12.5%. Not on insulin therapy. Worsened by recent steroid therapy for underlying COPD exacerbation. 10/06/2018. FBG 295. POCG [id number] Diabetic diet, long-acting insulin, pre-meal insulin, adding scale insulin. Adjust dosage as needed. Hypoglycemia protocol. We will need to be discharged on home insulin however not be able to afford it. Probably have to discharge on insulin 70/30 which is OTC. (5) Hypothyroidism Qualifiers: Hypothyroidism type: unspecified Qualified Code(s): E03.9 - Hypothyroidism, unspecified Is this a current diagnosis for this admission?: Yes Plan: TSH 1.13, T4 1.42, T3 2.85. Continue levothyroxine patient. Denies any weight changes, heat or cold intolerance, hair or nail changes. (6) Tobacco use disorder, severe, dependence Is this a current diagnosis for this admission?: Yes Plan: Advised on quitting. NicoDerm patch available. Does not want it at this time. Patient recently has switched to vaping. (7) Dyslipidemia Is this a current diagnosis for this admission?: No Plan: Lipid panel within normal limits except for low LDL. Continue statins.
[2018-10-06] MEDS ORDERED: INSULIN LISPRO 100 UNIT/ML 3 ML VIAL SUBCUT SCH (16:00)
[2018-10-06] MEDS: ALPRAZOLAM 0.5 MG TABLET PO PRN (17:09)
[2018-10-06] MEDS: INSULIN LISPRO 100 UNIT/ML 3 ML VIAL SUBCUT SCH (17:09)
[2018-10-06] MEDS: ATORVASTATIN CALCIUM 80 MG TABLET PO SCH (21:53)
[2018-10-07] MEDS: ALPRAZOLAM 0.5 MG TABLET PO PRN ×2 (00:07→06:07)
[2018-10-07] MEDS ORDERED: SODIUM CHLORIDE NASAL SPRAY 44 ML ONE (01:12)
[2018-10-07 05:13] LABS: HEMATOCRIT 37.1 % (36.0-47.0); HEMOGLOBIN 12.2 g/dL (12.0-15.5); MEAN CORPUSCULAR HEMOGLOBIN 24.6 pg (27.0-33.4); MEAN CORPUSCULAR VOLUME 75 fl (80-97); PLATELET COUNT 246 10^3/uL (150-450); RED BLOOD COUNT 4.97 10^6/uL (3.72-5.28); RED CELL DISTRIBUTION WIDTH 22.5 % (11.5-14.0); WHITE BLOOD COUNT 15.2 10^3/uL (4.0-10.5)
[2018-10-07 05:28] LABS: ANION GAP 9 (5-19); BLOOD UREA NITROGEN 29 mg/dL (7-20); CALCIUM 8.9 mg/dL (8.4-10.2); CARBON DIOXIDE 27 mmol/L (22-30); CHLORIDE 98 mmol/L (98-107); GLUCOSE 218 mg/dL (75-110); POTASSIUM 4.3 mmol/L (3.6-5.0)
[2018-10-07] MEDS: HEPARIN SOD (PORCINE) 5,000 UNIT/ML 1 ML SYRINGE SUBCUT SCH (05:57)
[2018-10-07] MEDS: LEVOTHYROXINE SODIUM 0.05 MG TABLET PO SCH (05:58)
[2018-10-07] MEDS: GABAPENTIN 300 MG CAPSULE PO SCH (05:58)
[2018-10-07] MEDS: PANTOPRAZOLE SODIUM 40 MG TABLET.DR PO SCH (05:58)
[2018-10-07] MEDS ORDERED: SODIUM CHLORIDE NASAL SPRAY 44 ML NASL SCH (06:00)
[2018-10-07] MEDS: BUDESONIDE NEB 0.5 MG/2 ML AMPUL NEB SCH (07:54)
[2018-10-07] MEDS: IPRATROPIUM/ALBUTEROL 0.5-2.5 MG/3 ML AMPUL NEB SCH (07:54)
[2018-10-07] MEDS: INSULIN LISPRO 100 UNIT/ML 3 ML VIAL SUBCUT SCH ×2 (09:56→11:54)
[2018-10-07] MEDS: CARVEDILOL 12.5 MG TABLET PO SCH (10:13)
[2018-10-07] MEDS: LISINOPRIL 5 MG TABLET PO SCH (10:13)
[2018-10-07] MEDS: HYDROCHLOROTHIAZIDE 12.5 MG TABLET PO SCH (10:13)
[2018-10-07] MEDS: CLOPIDOGREL BISULFATE 75 MG TABLET PO SCH (10:13)
[2018-10-07] MEDS: METFORMIN HCL 500 MG TABLET PO SCH (10:13)
[2018-10-07] MEDS: FLUCONAZOLE 100 MG TABLET PO SCH (10:14)
[2018-10-07] MEDS: INSULIN GLARGINE,HUM.REC.ANLOG 1,000 UNIT/10 ML VIAL SUBCUT SCH (10:14)
[2018-10-07] MEDS: CITALOPRAM HYDROBROMIDE 20 MG TABLET PO SCH (10:14)
[2018-10-07] MEDS: TIOTROPIUM BROMIDE DPI 5 CAP/KIT (18 MCG/CAP) IH SCH (10:14)
[2018-10-07] MEDS: DOCUSATE SODIUM 100 MG CAPSULE PO SCH (10:15)
[2018-10-07 12:44] VITALS: BP 113/60
--- NOTE | 2018-10-09 14:48 | PDOC DISCHARGE SUMMARY ---
General - Admit/Disc Date/PCP Admission Date/Primary Care Provider: 10/04/18 20:58 RICHARD RIVERS MD Discharge Date: 10/09/18 - Discharge Diagnosis (1) Acute on chronic respiratory failure with hypoxia Is this a current diagnosis for this admission?: Yes (2) COPD exacerbation Is this a current diagnosis for this admission?: No (3) Coronary artery disease Is this a current diagnosis for this admission?: Yes (4) Diabetes mellitus type 2 in nonobese Is this a current diagnosis for this admission?: Yes (5) Hypothyroidism Is this a current diagnosis for this admission?: Yes (6) Tobacco use disorder, severe, dependence Is this a current diagnosis for this admission?: Yes (7) Dyslipidemia Is this a current diagnosis for this admission?: No - Additional Information Resuscitation Status: Full Code Discharge Diet: Diabetic Discharge Activity: Activity As Tolerated, Balance Activity w/Rest Prescriptions: Fluticasone Propion/Salmeterol [Fluticasone-Salmeterol 250-50] 1 each IH BID 30 Days #3 blst.w.dev Insulin Glargine,Hum.rec.anlog [Lantus Insulin 100 Unit/1 ml 10 ml] 40 unit SUBCUT Q12 30 Days #3 unit Insulin Lispro [Humalog Insulin (Lispro) 100 unit/mL] 5 unit SUBCUT AC 30 Days #5 unit Metformin HCl [Glucophage] 1,000 mg PO BID 30 Days #60 tablet Tiotropium Catarina [Spiriva Respimat] 4 gm IH DAILY 30 Days #5 mist.inhal Home Medications: Clopidogrel Bisulfate [Plavix 75 mg Tablet] 75 mg PO DAILY 03/23/18 Hydrochlorothiazide 12.5 mg PO DAILY 03/23/18 Lisinopril [Prinivil] 5 mg PO DAILY 03/23/18 Albuterol Sulfate [Proair HFA Inhalation Aerosol 8.5 gm MDI] 2 puff IH Q6HP PRN 10/04/18 Alprazolam 1 mg PO Q6HP PRN 10/04/18 Atorvastatin Calcium [Lipitor 80 mg Tablet] 80 mg PO QHS 10/04/18 Carvedilol [Coreg 12.5 mg Tablet] 12.5 mg PO Q12 10/04/18 Citalopram Hydrobromide [Celexa 40 mg Tablet] 40 mg PO DAILY 10/04/18 Fluconazole [Diflucan] 150 mg PO Q3DAYS MDD last dose 10/0610/04/18 Gabapentin [Neurontin 300 mg Capsule] 600 mg PO Q8 10/04/18 Levothyroxine Sodium [Synthroid 0.05 mg Tablet] 50 mcg PO Q6AM 10/04/18 Magnesium Oxide [Mag-Ox 400 mg Tablet] 400 mg PO DAILY 10/04/18 Omeprazole 20 mg PO DAILY 10/04/18 Fluticasone Propion/Salmeterol [Fluticasone-Salmeterol 250-50] 1 each IH BID 30 Days #3 blst.w.dev 10/07/18 Insulin Glargine,Hum.rec.anlog [Lantus Insulin 100 Unit/1 ml 10 ml] 40 unit SUBCUT Q12 30 Days #3 unit 10/07/18 Insulin Lispro [Humalog Insulin (Lispro) 100 unit/mL] 5 unit SUBCUT AC 30 Days #5 unit 10/07/18 Metformin HCl [Glucophage] 1,000 mg PO BID 30 Days #60 tablet 10/07/18 Tiotropium Catarina [Spiriva Respimat] 4 gm IH DAILY 30 Days #5 mist.inhal 10/07/18 History of Present Illness History of Present Illness: JIM MONK is a 53 year old female who presented to the emergency room with a 7-day history of dyspnea. She admits progressively worsening dyspnea over the last 4 days despite outpatient treatment. She was seen by urgent care 4 days ago and started on Zithromax and prednisone for a pneumonia. Despite treatment her dyspnea has progressively worsened to being moderately severe and she return ed to urgent care today, where she was found to be hypoxic and hyperglycemic, thus she was sent to the emergency room for further evaluation. She further admits associated symptoms of a moderate productive cough (yellowish sputum), severe dyspnea on exertion, wheezing and a few episodes of loose stools. She admits prior similar episodes related to her COPD/asthma and further admits that she continues to smoke cigarettes despite her symptoms. She denies identification of any additional aggravating or ameliorating factors for her acute dyspnea. In the emergency room she was found to have an O2 sat in the low 80s at rest and was treated with supplemental oxygen and nebulizer therapy as well as intravenous steroids. Her chest x-ray was negative and a CTA of the chest revealed no evidence of pulmonary emboli. Patient was subsequently admitted to hospital for further evaluation and treatment. 10/05/2018. Seen comfortably resting in bed, no apparent distress, however still on supplemental oxygen, significant expiratory and extra wheezes on pulmonary examination. Heavy smoker however does not want a NicoDerm patch. Has never been diagnosed with COPD, does not use home oxygen. She denies any fever, chest pain, nausea, vomiting, diarrhea, constipation or any urinary symptoms. She is on nebs, PRN BiPAP, supplemental oxygen, IV steroids. She got 1 dose of ceftriaxone and azithromycin in ED. Will continue current treatment and reevaluate tomorrow. 06/08/2018. No acute events overnight, still dependent on supplemental oxygen with wheezing on respiratory examination, feeling better than yesterday. Denies any fever, chills, nausea, vomiting, diarrhea, constipation or any urinary symptoms. Hospital Course Hospital Course: (1) Acute on chronic respiratory failure with hypoxia Due to COPD exacerbation. Not on home O2. Dependent on supplemental O2. Was a started on DuoNeb's, PRN BiPAP, IV steroids, empiric IV antibiotics, supplemental oxygen, LABA/LAMA. Discharged on supplemental O2, LABA's/LAMA's. (2) COPD exacerbation As per #1. (3) Coronary artery disease Status post PCI 2010 04 stent placement. Denies any anginal pain. No recent echo available. Continued on antiplatelets, beta-blockers, GWEN, statins and cardiac diet. (4) Diabetes mellitus type 2 in nonobese Not controlled. A1c 12.5%. Probably worsened by recent steroid therapy for underlying COPD exacerbation. Started on diabetic diet, long-acting insulin, pre-meal insulin, adding scale insulin. Adjust dosage as needed. Hypoglycemia protocol. Discharge on pre-meal insulin, long-acting insulin and metformin increased to 1000 mg p.o. twice daily. (5) Hypothyroidism TSH 1.13, T4 1.42, T3 2.85. Continue levothyroxine patient. Denies any weight changes, heat or cold intolerance, hair or nail changes. (6) Tobacco use disorder, severe, dependence Advised on quitting. NicoDerm patch available. Does not want it at this time. Patient recently has switched to vaping. (7) Dyslipidemia Lipid panel within normal limits except for low LDL. Continue statins. Physical Exam Vital Signs: Temp Pulse Resp BP Pulse Ox 97.6 F 63 16 113/60 89 L 10/07/18 12:38 10/07/18 12:38 10/07/18 12:38 10/07/18 12:38 10/07/18 12:38 General appearance: PRESENT: no acute distress, well-developed, well-nourished Head exam: PRESENT: atraumatic, normocephalic Eye exam: PRESENT: conjunctiva pink, EOMI, PERRLA. ABSENT: scleral icterus Ear exam: PRESENT: normal external ear exam Mouth exam: PRESENT: moist, tongue midline Neck exam: ABSENT: carotid bruit, JVD, lymphadenopathy, thyromegaly Respiratory exam: PRESENT: clear to auscultation kelvin. ABSENT: rales, rhonchi, wheezes Cardiovascular exam: PRESENT: RRR. ABSENT: diastolic murmur, rubs, systolic murmur Pulses: PRESENT: normal dorsalis pedis pul Vascular exam: PRESENT: normal capillary refill GI/Abdominal exam: PRESENT: normal bowel sounds, soft. ABSENT: distended, guarding, mass, organolmegaly, rebound, tenderness Rectal exam: PRESENT: deferred Extremities exam: PRESENT: full ROM. ABSENT: calf tenderness, clubbing, pedal edema Neurological exam: PRESENT: alert, awake, oriented to person, oriented to place, oriented to time, oriented to situation, CN II-XII grossly intact. ABSENT: motor sensory deficit Psychiatric exam: PRESENT: appropriate affect, normal mood. ABSENT: homicidal ideation, suicidal ideation Skin exam: PRESENT: dry, intact, warm. ABSENT: cyanosis, rash Results Laboratory Results: 10/07/18 04:30 10/07/18 04:30 10/04/18 17:15 Troponin I < 0.012 NT-Pro-B Natriuret Pep 133 Impressions: Chest X-Ray 10/04/18 16:01 IMPRESSION: Mild chronic lung changes. Chest/Abdomen CTA 10/04/18 17:36 IMPRESSION: No pulmonary emboli. Background of ground-glass opacities demonstrating an apical basilar gradient is nonspecific and of unknown chronicity. Differential considerations include atypical infection, chronic interstitial disease (such as idiopathic interstitial pneumonia, eosinophilic pneumonia, etc), hypersensitivity pneumonitis, or other. Qualifiers - * PATIENT BEING DISCHARGED WITH ANY OF THE FOLLOWING DIAGNOSIS: No Acute Heart Failure - Is this a Heart Failure Patient?: No
== END 2018-10-07 15:00 | disposition home or self-care (01) | DRG 190 ==
LOC: ER 15:10 → EH 20:58 → 3N 10-05 01:41
PROVIDERS: ADMIT Emergency Medicine; ATTEND Emergency Medicine
DX: J44.1 Chronic obstructive pulmonary disease with (acute) exacerbation (principal); J96.01 Acute respiratory failure with hypoxia; E11.65 Type 2 diabetes mellitus with hyperglycemia; I25.10 Atherosclerotic heart disease of native coronary artery without angina pectoris; E78.5 Hyperlipidemia, unspecified; I10 Essential (primary) hypertension; I73.9 Peripheral vascular disease, unspecified; E03.9 Hypothyroidism, unspecified; M19.90 Unspecified osteoarthritis, unspecified site; Z96.659 Presence of unspecified artificial knee joint; F17.210 Nicotine dependence, cigarettes, uncomplicated; I25.2 Old myocardial infarction; Z86.711 Personal history of pulmonary embolism; Z87.01 Personal history of pneumonia (recurrent); Z85.819 Personal history of malignant neoplasm of unspecified site of lip, oral cavity, and pharynx; Z95.5 Presence of coronary angioplasty implant and graft; Z79.02 Long term (current) use of antithrombotics/antiplatelets; Z88.2 Allergy status to sulfonamides; Z88.6 Allergy status to analgesic agent; Z91.041 Radiographic dye allergy status; Z71.6 Tobacco abuse counseling; Z59.9 Problem related to housing and economic circumstances, unspecified; Z79.4 Long term (current) use of insulin; Z83.3 Family history of diabetes mellitus; Z80.9 Family history of malignant neoplasm, unspecified; Z82.49 Family history of ischemic heart disease and other diseases of the circulatory system
CPT/HCPCS: 36415; 36600; 71046; 71275; 80048; 80053; 80061; 81001; 82803; 82962; 83036; 83605; 83735; 83880; 84439; 84443; 84481; 84484; 85025; 85027; 85610; 87040; 87077; 87186; 87493; 93005; 93010; 96365; 96375; 99285; J0456; J0696; J1200; J1644; J1815; J1885; J2920; J2930; J3490; J7060; J7120; J7620; S0028

== ENCOUNTER 2019-02-23 11:28 | Emergency (ER) | payer MEDICAID ==
--- NOTE | 2019-02-23 11:47 | ER Document Report ---
ED Medical Screen (RME) - General Chief Complaint: High Blood Sugar Stated Complaint: BLOOD SUGAR ISSUES Time Seen by Provider: 02/23/19 11:45 Mode of Arrival: Ambulatory Information source: Patient Notes: 53-year-old female presented to ED for elevated blood sugar she had a sugar of 413 at the doctor's office today she is on Lantus Humalog and metformin. She states her A1c was 14.5. She states they sent her over to the emergency room. She states she is having frequent urination lots of diarrhea muscle weakness and feeling very tired all the time. I have greeted and performed a rapid initial assessment of this patient. A comprehensive ED assessment and evaluation of the patient, analysis of test results and completion of medical decision making process will be conducted by an additional ED providers. TRAVEL OUTSIDE OF THE [place] IN LAST 30 DAYS: No - Related Data Allergies/Adverse Reactions: codeine Allergy (Verified 02/23/19 11:43) Iodinated Contrast Media [Iodinated Contrast- Oral and IV Dye] Allergy (Verified 02/23/19 11:43) morphine Allergy (Verified 02/23/19 11:43) Sulfa (Sulfonamide Antibiotics) Allergy (Verified 02/23/19 11:43) Past Medical History - Past Medical History Cardiac Medical History: Reports: Hx Coronary Artery Disease, Hx Heart Attack, Hx Hypercholesterolemia, Hx Hypertension, Hx Peripheral Vascular Disease, Hx Pulmonary Embolism - Previously on long-term anticoagulation Denies: Hx Atrial Fibrillation, Hx Congestive Heart Failure Pulmonary Medical History: Reports: Hx Asthma, Hx Bronchitis, Hx COPD, Hx Pneumonia, Hx Respiratory Failure Neurological Medical History: Denies: Hx Seizures Endocrine Medical History: Reports: Hx Diabetes Mellitus Type 2, Hx Hypothyroidism. Denies: Hx Diabetes Mellitus Type 1, Hx Hyperthyroidism Renal/ Medical History: Denies: Hx Peritoneal Dialysis GI Medical History: Denies: Hx Cirrhosis, Hx Crohn's Disease, Hx Hepatitis, Hx Ulcerative Colitis Musculoskeltal Medical History: Reports Hx Arthritis, Denies Hx Fibromyalgia, Denies Hx Gout Skin Medical History: Denies Hx Eczema, Denies Hx Psoriasis Infectious Medical History: Denies: Hx Hepatitis Past Surgical History: Reports: Hx Cardiac Catheterization, Hx Cholecystectomy, Hx Coronary Stent, Hx Hysterectomy, Other - Oral cancer surgery Physical Exam - Vital signs Vitals: Temp Pulse Resp BP Pulse Ox 98.0 F 68 16 127/66 H 95 02/23/19 11:35 02/23/19 11:35 02/23/19 11:35 02/23/19 11:35 02/23/19 11:35 Course - Vital Signs Vital signs: Temp Pulse Resp BP Pulse Ox 98.0 F 68 16 127/66 H 95 02/23/19 11:35 02/23/19 11:35 02/23/19 11:35 02/23/19 11:35 02/23/19 11:35
[2019-02-23] MEDS ORDERED: NORMAL SALINE 1000 ML 1,000 ML IV ONE ×2 (11:50→13:34)
[2019-02-23 12:50] LABS: ABSOLUTE BASOPHILS # (AUTO) 0.1 10^3/uL (0.0-0.2); ABSOLUTE EOSINOPHILS # (AUTO) 0.3 10^3/uL (0.0-0.6); ABSOLUTE LYMPHOCYTES (AUTO) 2.5 10^3/uL (0.5-4.7); ABSOLUTE MONOCYTES (AUTO) 0.7 10^3/uL (0.1-1.4); ABSOLUTE NEUT (AUTO) 6.2 10^3/uL (1.7-8.2); BASOPHILS % (AUTO) 0.7 % (0-2); EOSINOPHILS % (AUTO) 2.7 % (0-6); HEMATOCRIT 45.5 % (36.0-47.0); HEMOGLOBIN 16.4 g/dL (12.0-15.5); LYMPHOCYTES % (AUTO) 25.5 % (13-45); MEAN CORPUSCULAR HEMOGLOBIN 30.3 pg (27.0-33.4); MEAN CORPUSCULAR VOLUME 84 fl (80-97); MONOCYTES % (AUTO) 6.8 % (3-13); PLATELET COUNT 251 10^3/uL (150-450); RED BLOOD COUNT 5.39 10^6/uL (3.72-5.28); RED CELL DISTRIBUTION WIDTH 13.1 % (11.5-14.0); SEGMENTED NEUTROPHILS % (AUTO) 64.3 % (42-78); TOTAL CELLS COUNTED % (AUTO) 100 %; WHITE BLOOD COUNT 9.7 10^3/uL (4.0-10.5)
[2019-02-23 13:11] LABS: BLOOD UREA NITROGEN 12 mg/dL (7-20); CALCIUM 9.5 mg/dL (8.4-10.2); POTASSIUM 4.2 mmol/L (3.6-5.0)
[2019-02-23 13:12] LABS: ALBUMIN 4.1 g/dL (3.5-5.0); ALKALINE PHOSPHATASE 93 U/L (38-126); ANION GAP 15 (5-19); ASPARTATE AMINO TRANSFERASE 17 U/L (14-36); BILIRUBIN,DIRECT 0.2 mg/dL (0.0-0.4); BILIRUBIN,TOTAL 1.1 mg/dL (0.2-1.3); CARBON DIOXIDE 23 mmol/L (22-30); CHLORIDE 99 mmol/L (98-107); TOTAL PROTEIN 6.8 g/dL (6.3-8.2)
[2019-02-23 13:23] LABS: GLUCOSE 480 mg/dL (75-110)
[2019-02-23 13:28] LABS: VENOUS BLOOD HCO3 24.6 mmol/L (20-32); VENOUS BLOOD PH 7.32 (7.30-7.42)
[2019-02-23] MEDS ORDERED: INSULIN REG, HUMAN 100 UNIT/ML 3 ML VIAL (PYX) IV ONE (14:40)
--- NOTE | 2019-02-23 14:42 | ER Document Report ---
ED Blood Sugar Problem - General Chief Complaint: High Blood Sugar Stated Complaint: BLOOD SUGAR ISSUES Time Seen by Provider: 02/23/19 11:45 Primary Care Provider: ANDRES CARDEANS FNP-C [Primary Care Provider] - Follow up in 3-5 days Mode of Arrival: Ambulatory TRAVEL OUTSIDE OF THE [place] IN LAST 30 DAYS: No - HPI Notes: 53 year old female to the ED via EMS from PCP for blood sugar of 413. States she has been faithfully taking her insulin and metformin and still her Hemoglobin A1C is 14. States that she has been having muscle weakness, urinary frequency, and diarrhea. Denies any abd pain, headache, chest pain, SOB, NVD, flank pain. She has not seen an frontend engineer. States that she has had difficulty with her sugar for over 10 years. States she has been in DKA before. - Related Data Allergies/Adverse Reactions: codeine Allergy (Verified 02/23/19 11:43) Iodinated Contrast Media [Iodinated Contrast- Oral and IV Dye] Allergy (Verified 02/23/19 11:43) morphine Allergy (Verified 02/23/19 11:43) Sulfa (Sulfonamide Antibiotics) Allergy (Verified 02/23/19 11:43) Past Medical History - General Information source: Patient - Social History Smoking Status: Current Every Day Smoker Chew tobacco use (# tins/day): No Frequency of alcohol use: None Drug Abuse: None Family History: CAD, DM, Hypertension, Malignancy Patient has suicidal ideation: No Patient has homicidal ideation: No - Past Medical History Cardiac Medical History: Reports: Hx Coronary Artery Disease, Hx Heart Attack, Hx Hypercholesterolemia, Hx Hypertension, Hx Peripheral Vascular Disease, Hx Pulmonary Embolism - Previously on long-term anticoagulation Denies: Hx Atrial Fibrillation, Hx Congestive Heart Failure Pulmonary Medical History: Reports: Hx Asthma, Hx Bronchitis, Hx COPD, Hx Pneumonia, Hx Respiratory Failure Neurological Medical History: Denies: Hx Seizures Endocrine Medical History: Reports: Hx Diabetes Mellitus Type 2, Hx Hypothy roidism. Denies: Hx Diabetes Mellitus Type 1, Hx Hyperthyroidism Renal/ Medical History: Denies: Hx Peritoneal Dialysis GI Medical History: Denies: Hx Cirrhosis, Hx Crohn's Disease, Hx Hepatitis, Hx Ulcerative Colitis Musculoskeletal Medical History: Reports Hx Arthritis, Denies Hx Fibromyalgia, Denies Hx Gout Skin Medical History: Denies Hx Eczema, Denies Hx Psoriasis Infectious Medical History: Denies: Hx Hepatitis Past Surgical History: Reports: Hx Cardiac Catheterization, Hx Cholecystectomy, Hx Coronary Stent, Hx Hysterectomy, Other - Oral cancer surgery Review of Systems - Review of Systems Constitutional: denies: Chills, Fever EENT: No symptoms reported Cardiovascular: denies: Chest pain, Palpitations, Heart racing, Orthopnea, Dyspnea, Syncope, Dizziness, Lightheaded Respiratory: denies: Cough, Short of breath Gastrointestinal: Diarrhea. denies: Abdominal pain, Nausea, Vomiting Genitourinary: Frequency. denies: Flank pain Female Genitourinary: No symptoms reported Musculoskeletal: No symptoms reported Skin: No symptoms reported Hematologic/Lymphatic: No symptoms reported Neurological/Psychological: No symptoms reported -: Yes All other systems reviewed and negative Physical Exam - Vital signs Vitals: Temp Pulse Resp BP Pulse Ox 98.0 F 68 16 127/66 H 95 02/23/19 11:35 02/23/19 11:35 02/23/19 11:35 02/23/19 11:35 02/23/19 11:35 Interpretation: Normal - General General appearance: Appears well, Alert - HEENT Head: Normocephalic, Atraumatic Eyes: Normal Pupils: PERRL - Respiratory Respiratory status: No respiratory distress Chest status: Nontender Breath sounds: Normal Chest palpation: Normal - Cardiovascular Rhythm: Regular Heart sounds: Normal auscultation Murmur: No - Abdominal Inspection: Normal Distension: No distension Bowel sounds: Normal Tenderness: Nontender Organomegaly: No organomegaly - Back Back: Normal, Nontender - Neurological Neuro grossly intact: Yes Cognition: Normal Orientation: AAOx4 [place] Coma Scale Eye Opening: Spontaneous [place] Coma Scale Verbal: Oriented [place] Coma Scale Motor: Obeys Commands [place] Coma Scale Total: 15 Speech: Normal Cranial nerves: Normal. No: Facial palsy, Forehead sparing, Gaze palsy, Sensory deficit, Tongue deviation Cerebellar coordination: Normal. No: Gait ataxia Motor strength normal: LUE, RUE, LLE, RLE Additional motor exam normals: Equal hand wood sander. No: Pronator drift Sensory: Normal - Psychological Associated symptoms: Normal affect, Normal mood - Skin Skin Temperature: Warm Skin Moisture: Dry Skin Color: Normal Course - Re-evaluation Re-evalutation: Impression: Hyperglycemia with uncontrolled DM type 2. Patient is not in DKA today. She has responded nicely to regular insulin and she would like to be discharged home. Will have her follow up with PCP and also have her follow up with frontend engineer. Patient agrees with the plan. - Vital Signs Vital signs: Temp Pulse Resp BP Pulse Ox 98.2 F 68 18 145/88 H 95 02/23/19 16:01 02/23/19 11:35 02/23/19 16:01 02/23/19 16:01 02/23/19 16:01 - Laboratory Result Diagrams: 02/23/19 12:30 02/23/19 12:30 Laboratory results interpreted by me: 02/23/19 02/23/19 02/23/19 12:26 12:30 12:30 RBC 5.39 H Hgb 16.4 H Sodium 136.9 L Glucose 480 H* POC Glucose 491 H* 02/23/19 15:38 RBC Hgb Sodium Glucose POC Glucose 256 H Discharge - Discharge Clinical Impression: Hyperglycemia Condition: Stable Disposition: HOME, SELF-CARE Instructions: Hyperglycemia ([facility]) Additional Instructions: PLEASE FOLLOW UP WITH [facility] WITHOUT FAIL. TAKE MEDICINES PRESCRIBED. RETURN IF WORSENING SYMPTOMS. Dr. House [facility] [address] [place] [address] [address] [place] [address]. [phone] Referrals: ANDRES CARDENAS FNP-C [Primary Care Provider] - Follow up in 3-5 days
[2019-02-23 16:15] VITALS: BP 145/88
--- NOTE | 2019-02-24 00:01 | EKG REPORT ---
SEVERITY:- BORDERLINE ECG - SINUS RHYTHM BORDERLINE T ABNORMALITIES, ANT-LAT LEADS : Confirmed by: Jose F Segura 24-Feb-2019 00:00:53
== END 2019-02-23 16:26 | disposition home or self-care (01) ==
LOC: ER 11:28
DX: E11.65 Type 2 diabetes mellitus with hyperglycemia (principal); F17.200 Nicotine dependence, unspecified, uncomplicated; I25.10 Atherosclerotic heart disease of native coronary artery without angina pectoris; E78.00 Pure hypercholesterolemia, unspecified; Z86.711 Personal history of pulmonary embolism; Z79.4 Long term (current) use of insulin; Z79.84 Long term (current) use of oral hypoglycemic drugs; Z88.6 Allergy status to analgesic agent; Z88.2 Allergy status to sulfonamides; Z90.49 Acquired absence of other specified parts of digestive tract; I25.2 Old myocardial infarction
CPT/HCPCS: 93005; 99283; 96360; 96361; 36415; 82962; 85025; 80053; 84484; 82803; 93010; J1815; J7030

== ENCOUNTER 2019-07-19 19:51 | Emergency (ER) | payer MEDICAID ==
[2019-07-19] MEDS ORDERED: RINGERS SOLUTION,LACTATED 2,000 ML IV ONE (20:05)
--- NOTE | 2019-07-19 20:12 | ER Document Report ---
ED Medical Screen (RME) - General Chief Complaint: Other Stated Complaint: ABNORMAL LABS/HIGH BLOOD SUGAR Time Seen by Provider: 07/19/19 20:02 Primary Care Provider: RICHARD RIVERS MD [Primary Care Provider] - Follow up as needed Notes: Patient is a 53-year-old female who presents the emergency department with high blood sugar readings via labs by her primary care provider. Patient states that she has felt fatigued and her blood sugars have been high. A week ago she had her basic labs drawn by her primary care provider and her blood sugar was over 1100. Patient states that she is on metformin, Lantus, and Humalog. Exam: Sugar reading High on Accucheck machine. I have greeted and performed a rapid initial assessment of this patient. A comprehensive ED assessment and evaluation of the patient, analysis of test results and completion of medical decision making process will be conducted by an additional ED providers. TRAVEL OUTSIDE OF THE [place] IN LAST 30 DAYS: No - Related Data Allergies/Adverse Reactions: codeine Allergy (Verified 02/23/19 11:43) Iodinated Contrast Media [Iodinated Contrast- Oral and IV Dye] Allergy (Verified 02/23/19 11:43) morphine Allergy (Verified 02/23/19 11:43) Sulfa (Sulfonamide Antibiotics) Allergy (Verified 02/23/19 11:43) Past Medical History - Past Medical History Cardiac Medical History: Reports: Hx Coronary Artery Disease, Hx Heart Attack, Hx Hypercholesterolemia, Hx Hypertension, Hx Peripheral Vascular Disease, Hx Pulmonary Embolism - Previously on long-term anticoagulation Denies: Hx Atrial Fibrillation, Hx Congestive Heart Failure Pulmonary Medical History: Reports: Hx Asthma, Hx Bronchitis, Hx COPD, Hx Pneumonia, Hx Respiratory Failure Neurological Medical History: Denies: Hx Seizures Endocrine Medical History: Reports: Hx Diabetes Mellitus Type 2, Hx Hypothyroidism. Denies: Hx Diabetes Mellitus Type 1, Hx Hyperthyroidism Renal/ Medical History: Denies: Hx Peritoneal Dialysis GI Medical History: Denies: Hx Cirrhosis, Hx Crohn's Disease, Hx Hepatitis, Hx Ulcerative Colitis Musculoskeltal Medical History: Reports Hx Arthritis, Denies Hx Fibromyalgia, Denies Hx Gout Skin Medical History: Denies Hx Eczema, Denies Hx Psoriasis Infectious Medical History: Denies: Hx Hepatitis Past Surgical History: Reports: Hx Cardiac Catheterization, Hx Cholecystectomy, Hx Coronary Stent, Hx Hysterectomy, Other - Oral cancer surgery Doctor's Discharge - Discharge Referrals: RICHARD RIVERS MD [Primary Care Provider] - Follow up as needed
[2019-07-19 20:55] LABS: VENOUS BLOOD BASE EXCESS -3.7 mmol/L; VENOUS BLOOD HCO3 24.6 mmol/L (20-32); VENOUS BLOOD PCO2 56.7 mmHg (35-63); VENOUS BLOOD PH 7.26 (7.30-7.42)
[2019-07-19 21:01] LABS: ABSOLUTE BASOPHILS # (AUTO) 0.1 10^3/uL (0.0-0.2); ABSOLUTE EOSINOPHILS # (AUTO) 0.4 10^3/uL (0.0-0.6); ABSOLUTE LYMPHOCYTES (AUTO) 2.7 10^3/uL (0.5-4.7); ABSOLUTE MONOCYTES (AUTO) 1.1 10^3/uL (0.1-1.4); ABSOLUTE NEUT (AUTO) 13.4 10^3/uL (1.7-8.2); BASOPHILS % (AUTO) 0.5 % (0-2); EOSINOPHILS % (AUTO) 2.5 % (0-6); HEMATOCRIT 49.3 % (36.0-47.0); HEMOGLOBIN 17.3 g/dL (12.0-15.5); LYMPHOCYTES % (AUTO) 15.3 % (13-45); MEAN CORPUSCULAR VOLUME 86 fl (80-97); MONOCYTES % (AUTO) 6.4 % (3-13); PLATELET COUNT 326 10^3/uL (150-450); RED BLOOD COUNT 5.75 10^6/uL (3.72-5.28); RED CELL DISTRIBUTION WIDTH 13.1 % (11.5-14.0); SEGMENTED NEUTROPHILS % (AUTO) 75.3 % (42-78); TOTAL CELLS COUNTED % (AUTO) 100 %; WHITE BLOOD COUNT 17.8 10^3/uL (4.0-10.5)
[2019-07-19 21:21] LABS: ALBUMIN 4.3 g/dL (3.5-5.0); ALKALINE PHOSPHATASE 173 U/L (38-126); ANION GAP 14 (5-19); ASPARTATE AMINO TRANSFERASE 20 U/L (14-36); BILIRUBIN,DIRECT 0.3 mg/dL (0.0-0.4); BILIRUBIN,TOTAL 0.9 mg/dL (0.2-1.3); BLOOD UREA NITROGEN 9 mg/dL (7-20); CALCIUM 9.2 mg/dL (8.4-10.2); CARBON DIOXIDE 24 mmol/L (22-30); CHLORIDE 90 mmol/L (98-107); POTASSIUM 4.2 mmol/L (3.6-5.0); TOTAL PROTEIN 7.5 g/dL (6.3-8.2)
--- NOTE | 2019-07-19 21:29 | ER Document Report ---
ED General - General Chief Complaint: Abnormal Lab Results Stated Complaint: ABNORMAL LABS/HIGH BLOOD SUGAR Time Seen by Provider: 07/19/19 20:02 Primary Care Provider: RICHARD RIVERS MD [Primary Care Provider] - Follow up as needed TRAVEL OUTSIDE OF THE [place] IN LAST 30 DAYS: No - HPI Notes: Chief complaint: High blood sugar Patient is a 53-year-old female with history of poorly controlled diabetes mellitus and noncompliance with diet medications who presents the emergency department with high blood sugar readings via labs by her primary care provider. Patient states that she has felt fatigued and her blood sugars have been high. She reports polyuria and polydipsia. She denies nausea or vomiting but has had some intermittent loose stools. She is also coughing with production of some clear sputum. She denies dyspnea. She denies chest pain. She continues to sm iza a pack of cigarettes per day. She denies any skin rashes or sores. A week ago she had her basic labs drawn by her primary care provider and her blood sugar was over 1100. Patient states that she is on metformin, Lantus, and Humalog. She says she is compliant with her prescribed insulin and metformin. She is currently taking Lantus 30 units twice daily with supplemental use of a sliding scale. Patient has brought in copies of lab results from her primary care physician. On the of this month she had a glucose of over 1100 and a hemoglobin A1c of 17.9. - Related Data Allergies/Adverse Reactions: codeine Allergy (Verified 02/23/19 11:43) Iodinated Contrast Media [Iodinated Contrast- Oral and IV Dye] Allergy (Verified 02/23/19 11:43) morphine Allergy (Verified 02/23/19 11:43) Sulfa (Sulfonamide Antibiotics) Allergy (Verified 02/23/19 11:43) Past Medical History - General Information source: Patient, [facility] Records, Outside Facility Records - Social History Smoking Status: Current Every Day Smoker Family History: CAD, DM, Hypertension, Malignancy Patient has suicidal ideation: No Patient has homicidal ideation: No - Past Medical History Cardiac Medical History: Reports: Hx Coronary Artery Disease, Hx Heart Attack, Hx Hypercholesterolemia, Hx Hypertension, Hx Peripheral Vascular Disease, Hx Pulmonary Embolism - Previously on long-term anticoagulation Denies: Hx Atrial Fibrillation, Hx Congestive Heart Failure Pulmonary Medical History: Reports: Hx Asthma, Hx Bronchitis, Hx COPD, Hx Pneumonia, Hx Respiratory Failure Neurological Medical History: Denies: Hx Seizures Endocrine Medical History: Reports: Hx Diabetes Mellitus Type 2, Hx Hypothyroidism. Denies: Hx Diabetes Mellitus Type 1, Hx Hyperthyroidism Renal/ Medical History: Denies: Hx Peritoneal Dialysis GI Medical History: Denies: Hx Cirrhosis, Hx Crohn's Disease, Hx Hepatitis, Hx Ulcerative Colitis Musculoskeletal Medical History: Reports Hx Arthritis, Denies Hx Fibromyalgia, Denies Hx Gout Skin Medical History: Denies Hx Eczema, Denies Hx Psoriasis Infectious Medical History: Denies: Hx Hepatitis Past Surgical History: Reports: Hx Cardiac Catheterization, Hx Cholecystectomy, Hx Coronary Stent, Hx Hysterectomy, Other - Oral cancer surgery Review of Systems - Review of Systems Notes: Constitutional: Negative for fever. HENT: Negative for sore throat. Eyes: Negative for visual changes. Cardiovascular: Negative for chest pain. Respiratory: Negative for shortness of breath. Gastrointestinal: Negative for abdominal pain, vomiting or diarrhea. Genitourinary: Negative for dysuria. Musculoskeletal: Negative for back pain. Skin: Negative for rash. Endocrine: Positive for polydipsia and polyuria. Neurological: Negative for headaches, weakness or numbness. 10 point ROS negative except as marked above and in HPI. Physical Exam - Vital signs Vitals: Temp Pulse Resp BP Pulse Ox 98.2 F 85 16 165/85 H 95 07/19/19 19:57 07/19/19 19:57 07/19/19 19:57 07/19/19 19:57 07/19/19 19:57 - Notes Notes: GENERAL: Somewhat chronically ill-appearing middle-age female presently in no acute distress. SKIN: Good turgor no rashes. HEAD: Normocephalic atraumatic. EYES: PERRLA. EOMI. Conjunctivae and sclerae clear. EARS: CANALS AND TMS CLEAR. NOSE: CLEAR. MOUTH: Moist mucosa. Good dentition. No stridor or edema. No drooling. NECK: Supple. No masses or thyromegaly. No adenopathy. Carotids 2+ without bruits. No JVD. BACK: Symmetrical without tenderness. CHEST: Respirations unlabored. Scattered rhonchi bilaterally. HEART: Regular rhythm. No murmur gallop or rub. ABDOMEN: Soft nontender without masses, organomegaly or rebound. Bowel sounds normally active. No bruits. GENITALIA: Deferred. EXTREMITIES: No edema. No calf tenderness. Cap refill less than 1.5 seconds. Dorsalis pedis and posterior tibial pulses 3+ and symmetrical. NEUROLOGICAL: GCS 15. Alert and oriented x3. Normal gait. Fluent speech. Cranial nerves II through XII intact. Sensorimotor and cerebellar normal. Normal tone. PSYCHIATRIC: Appropriate affect. Course - Re-evaluation Re-evalutation: This patient is obviously noncompliant with prescribed treatment. I have given her 2 L of normal saline IV. She looks to be in very early diabetic ketoacidosis. Venous pH was 7.27. Her blood sugar was around 700. We started her on IV insulin infusion. I do not see an obvious source of infection. EKG did not show any acute changes and her troponin was normal. She does not have a fever and does not have a significant elevation of white count. Sugar has declined to about 400 after hydration and initiation of insulin. A repeat basic metabolic profile shows that the potassium has dropped 3.3 but her bicarbonate is normal and her previously elevated anion gap has normalized. Plan at this time is to give the patient some further hydration and replace some potassium. If we get her blood sugar below 350 and she is able to tolerate p.o. fluids I think we can try to manage this lady as an outpatient. 07/20/19 01:04 07/20/19 01:17 Blood sugar is now down to 310 I think this patient can be managed at home. - Vital Signs Vital signs: Temp Pulse Resp BP Pulse Ox 98.2 F 85 16 165/85 H 96 07/19/19 19:57 07/19/19 19:57 07/19/19 21:00 07/19/19 19:57 07/19/19 21:00 - Laboratory Result Diagrams: 07/19/19 20:37 07/19/19 23:35 Laboratory results interpreted by me: 07/19/19 07/19/19 07/19/19 20:06 20:37 20:37 WBC 17.8 H RBC 5.75 H Hgb 17.3 H Hct 49.3 H Absolute Neuts (auto) 13.4 H VBG pH 7.26 L Sodium 127.8 L Potassium Chloride 90 L Creatinine Glucose 688 H* POC Glucose Alkaline Phosphatase 173 H Urine Glucose (UA) 07/19/19 07/19/19 07/19/19 21:48 22:51 23:35 WBC RBC Hgb Hct Absolute Neuts (auto) VBG pH Sodium 131.3 L Potassium 3.3 L Chloride Creatinine 0.48 L Glucose 408 H* POC Glucose 471 H* Alkaline Phosphatase Urine Glucose (UA) >=500 H 07/19/19 23:54 WBC RBC Hgb Hct Absolute Neuts (auto) VBG pH Sodium Potassium Chloride Creatinine Glucose POC Glucose 410 H* Alkaline Phosphatase Urine Glucose (UA) Critical Care Note - Critical Care Note Total time excluding time spent on procedures (mins): 35 - IV insulin drip Discharge - Discharge Clinical Impression: Hypokalemia Type 2 diabetes mellitus Qualifiers: Diabetes mellitus rn long term care insulin use: with mcc use Diabetes mellitus complication status: with hyperglycemia Qualified Code(s): E11.65 - Type 2 diabetes mellitus with hyperglycemia Condition: Stable Disposition: HOME, SELF-CARE Additional Instructions: See your doctor tomorrow. Increase oral fluid intake. Add oral potassium as prescribed here tonight. Increase your Lantus to 35 units twice daily. Return here as needed for new or worsening symptoms. Prescriptions: Potassium Chloride 20 meq PO BID 7 Days #14 [email or web address] Forms: Smoking Cessation Education Referrals: RICHARD RIVERS MD [Primary Care Provider] - Follow up as needed
[2019-07-19 21:33] LABS: GLUCOSE 688 mg/dL (75-110)
[2019-07-19] MEDS ORDERED: NORMAL SALINE 100 ML with INSULIN REGULAR, HUMAN 100 UNIT IV PRN ×2 (21:34)
[2019-07-19] MEDS ORDERED: INSULIN REG, HUMAN 100 UNIT/ML 3 ML VIAL (PYX) ONE (21:44)
--- NOTE | 2019-07-19 22:06 | RADIOLOGY REPORT (SQ) ---
EXAM DESCRIPTION: XR CHEST 1 VIEW COMPLETED DATE/TME: 07/19/2019 21:23 CLINICAL HISTORY: 53 years Female cough COMPARISON: 10/04/2018 FINDINGS: The cardiomediastinal silhouette appears unremarkable. No consolidating infiltrates or pleural effusions. No pneumothorax. IMPRESSION: No acute abnormality is identified.
[2019-07-19 22:43] LABS: APPEARANCE,URINE CLEAR; BILIRUBIN,URINE NEGATIVE (NEGATIVE); COLOR,URINE STRAW; GLUCOSE, URINE >=500 mg/dL (NEGATIVE); KETONES,URINE NEGATIVE (NEGATIVE); PROTEIN,URINE NEGATIVE (NEGATIVE); URINE SPECIFIC GRAVITY 1.028; UROBILINOGEN,URINE NEGATIVE mg/dL (<2.0)
[2019-07-19 23:52] LABS: VENOUS BLOOD BASE EXCESS -1.4 mmol/L; VENOUS BLOOD HCO3 23.7 mmol/L (20-32); VENOUS BLOOD PCO2 41.5 mmHg (35-63); VENOUS BLOOD PH 7.38 (7.30-7.42)
[2019-07-20 00:11] LABS: ANION GAP 7 (5-19); BLOOD UREA NITROGEN 7 mg/dL (7-20); CALCIUM 8.8 mg/dL (8.4-10.2); CARBON DIOXIDE 25 mmol/L (22-30); CHLORIDE 99 mmol/L (98-107); POTASSIUM 3.3 mmol/L (3.6-5.0)
[2019-07-20 00:18] LABS: GLUCOSE 408 mg/dL (75-110)
[2019-07-20] MEDS ORDERED: POTASSI CL 20 MEQ/50 ML RIDER 20 MEQ/50 ML RTUPB IV ONE (00:32)
[2019-07-20] MEDS ORDERED: POTASSIUM CHLORIDE 10 MEQ TABLET.ER PO ONE (00:33)
[2019-07-20 02:26] VITALS: BP 108/61
--- NOTE | 2019-07-20 08:28 | EKG REPORT ---
SEVERITY:- BORDERLINE ECG - SINUS RHYTHM PROBABLE LEFT ATRIAL ABNORMALITY BORDERLINE T ABNORMALITIES, ANT-LAT LEADS : Confirmed by: Jose F Segura 20-Jul-2019 08:27:31
== END 2019-07-20 02:33 | disposition home or self-care (01) ==
LOC: ER 19:51
DX: E11.65 Type 2 diabetes mellitus with hyperglycemia (principal); Z79.4 Long term (current) use of insulin; E87.6 Hypokalemia; R53.83 Other fatigue; R63.1 Polydipsia; R35.8 Other polyuria; R19.4 Change in bowel habit; I25.10 Atherosclerotic heart disease of native coronary artery without angina pectoris; I10 Essential (primary) hypertension; J44.9 Chronic obstructive pulmonary disease, unspecified; E11.51 Type 2 diabetes mellitus with diabetic peripheral angiopathy without gangrene; F17.210 Nicotine dependence, cigarettes, uncomplicated; Z88.2 Allergy status to sulfonamides; Z88.6 Allergy status to analgesic agent; Z88.5 Allergy status to narcotic agent; Z91.041 Radiographic dye allergy status; Z95.5 Presence of coronary angioplasty implant and graft
CPT/HCPCS: 93005; 99285; 96361; 96365; 36415; 82962; 85025; 80053; 81001; 84484; 82803; 71045; 93010; J3480; J7120

== ENCOUNTER 2019-07-30 12:27 | Emergency (ER) | payer MEDICAID ==
--- NOTE | 2019-07-30 12:39 | ER Document Report ---
HPI - HPI Patient complains to provider of: possible exposure to Covid 19 Onset: Other Quality of pain: No pain Severity: None Context: 53-year-old female with history of cardiac disease, diabetes presents to the ED [facility] center for possible Covid exposure. 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 She denies symptoms at this time. Denies fever vomiting diarrhea. Denies shortness of breath and chest pain. Associated Symptoms: None. denies: Chest pain, Nonproductive cough, Productive cough, Fever, Shortness of breath, Sore throat Exacerbated by: Denies Relieved by: Denies Similar symptoms previously: No Recently seen / treated by doctor: No - CONSTITUTIONAL Constitutional: DENIES: Fever - EENT EENT: DENIES: Sore Throat - REPRODUCTIVE Reproductive: DENIES: : Past Medical History - General Information source: Patient - Social History Smoking Status: Current Every Day Smoker Cigarette use (# per day): Yes Occupation: construction driver Lives with: Family Family History: CAD, DM, Hypertension, Malignancy - Past Medical History Cardiac Medical History: Reports: Hx Coronary Artery Disease, Hx Heart Attack, Hx Hypercholesterolemia, Hx Hypertension, Hx Peripheral Vascular Disease, Hx Pulmonary Embolism - Previously on long-term anticoagulation Denies: Hx Atrial Fibrillation, Hx Congestive Heart Failure Pulmonary Medical History: Reports: Hx Asthma, Hx Bronchitis, Hx COPD, Hx Pneu monia, Hx Respiratory Failure Neurological Medical History: Denies: Hx Seizures Endocrine Medical History: Reports: Hx Diabetes Mellitus Type 2, Hx Hy pothyroidism. Denies: Hx Diabetes Mellitus Type 1, Hx Hyperthyroidism Renal/ Medical History: Denies: Hx Peritoneal Dialysis GI Medical History: Denies: Hx Cirrhosis, Hx Crohn's Disease, Hx Hepatitis, Hx Ulcerative Colitis Musculoskeletal Medical History: Reports Hx Arthritis, Denies Hx Fibromyalgia, Denies Hx Gout Skin Medical History: Denies Hx Eczema, Denies Hx Psoriasis Infectious Medical History: Denies: Hx Hepatitis Past Surgical History: Reports: Hx Cardiac Catheterization, Hx Cholecystectomy, Hx Coronary Stent, Hx Hysterectomy, Other - Oral cancer surgery Vertical Provider Document - CONSTITUTIONAL Agree With Documented VS: Yes Exam Limitations: No Limitations General Appearance: WD/WN, No Apparent Distress Notes: Full physical exam could not be performed due to Covidien 19 isolation protocols. Constitutional: nontoxic appearance, no acute distress Eyes: Nonicteric, extraocular movements intact, sclera clear Respiratory: Nonlabored breathing, no use of accessory muscles, no tachypnea, +wheeze Cardiovascular: No JVD Gastrointestinal: Abdominal not distended Musculoskeletal: Moves all extremities well Skin: Normal color Neuro: Awake alert oriented normal speech Psych: Normal mood and affect - INFECTION CONTROL TRAVEL OUTSIDE OF THE [place] IN LAST 30 DAYS: No - HEENT HEENT: Atraumatic, Normocephalic. negative: Conjuctival Injection, Pharyngeal Exudate, Pharyngeal Erythema - NECK Neck: Supple - RESPIRATORY Respiratory: Breath Sounds Normal, No Respiratory Distress Course - Re-evaluation Re-evalutation: 07/30/19 12:40 Patient presents with upper respiratory symptoms worrisome for possible Covid 19. Patient does not have emergency worriesome symptoms such as difficulty breathing, shortness of breath, chest pain, pressure, confusion or cyanosis. Patient does have positive wheeze. She reports she has an inhaler and nebulizer at home. She denies shortness of breath, speaks in full clear sentences, no retractions. Reports chronic wheeze. Patient appears suitable for discharge. Patient's vital signs are stable and patient is nontoxic in appearance. Patient was instructed on pending strep and influenza test. She was instructed on Kovic pending due to her past medical history. She was instructed on self quarantine. She verbalized understanding to all instructions. Good return precautions have been discussed with patient, patient verbalized understanding and is agreeable with discharge plan of care at this time. 07/30/19 14:10 Strep and influenza negative. Throat culture pending, Covid testing pending. Patient notified of results via RN. - Vital Signs Vital signs: 07/30/19 13:04 Heart Rate 75 BP 119/72 O2 sat 96% temperature 97.4 respiratory rate 16 Discharge - Discharge Clinical Impression: possible exposure to Covid 19 Condition: Stable Disposition: HOME, SELF-CARE Additional Instructions: *You have been evaluated today for a possible exposure to Covid 19 *A strep and flu test have also been completed. You will be notified today of those results. A throat culture will be pending and you may be contacted in 3 to 4 days should you need antibiotics *You have also been tested for Covid 19. You are now required to self quarantine for the next 14 days or until you get negative results back from the health department. As a person under investigation for Covid 19, the [place] department of Health and Human Services, division of public health advises you to adhere to the following guidance until your test results are reported to you. If your test result is positive, you will receive additional information from your provider and your local health department at that time. Remain at home until you are cleared by the health provider or public health authorities. Keep a log of visitors to your home, notify any visitors to your home of your isolation status. If you plan to move to a new address or leave the county, notify the local health department in your County. Call your doctor or seek care if you have an urgent medical need. Before seeking medical care, call ahead to get instructions from the provider before arriving at the medical office clinic or hospital. Notify them that you are being tested for the virus that causes Covid 19 so that arrangements can be ma de, as necessary, to prevent transmission to others in the healthcare setting. Next, notify the local health department in your county. If a medical emergency arises and you need to call 911, inform dispatch and the first responders that you are being tested for the virus that causes Covid 19. Next, notify the local health department in your county. Guidance for worsening S/SX: For worsening symptoms, patient has been advised to contact their Primary Care Provider, or go to the nearest Emergency Department. Referrals: [facility] [Primary Care Provider] - Follow up as needed
[2019-07-30 13:59] LABS: A TYPE INFLUENZA AG NEGATIVE (NEGATIVE); B INFLUENZA AG NEGATIVE (NEGATIVE)
== END 2019-07-30 15:08 | disposition home or self-care (01) ==
LOC: EDRDC 12:27
DX: R09.89 Other specified symptoms and signs involving the circulatory and respiratory systems (principal); Z20.828 Contact with and (suspected) exposure to other viral communicable diseases; J44.9 Chronic obstructive pulmonary disease, unspecified; F17.210 Nicotine dependence, cigarettes, uncomplicated; I25.10 Atherosclerotic heart disease of native coronary artery without angina pectoris; I10 Essential (primary) hypertension; I25.2 Old myocardial infarction; E11.51 Type 2 diabetes mellitus with diabetic peripheral angiopathy without gangrene; Z79.899 Other long term (current) drug therapy
CPT/HCPCS: 87070; 87635; 87804; 87880; 99211

== ENCOUNTER 2019-09-08 11:37 | Emergency (ER) | payer MEDICAID ==
[2019-09-08 11:43] VITALS: BP 119/85
[2019-09-08] MEDS ORDERED: HYDROCODONE/ACETAMINOPHEN 5-325 MG (6 TAB/ER DISP) PO PRN (11:50)
--- NOTE | 2019-09-08 11:54 | ER Document Report ---
HPI - HPI Time Seen by Provider: 09/08/19 11:44 Notes: 53-year-old female presents emergency room for complaints of the left ingrown hair for the last week. Has not tried any ltbt-iie-ypvcyop medications, has tried hot compresses. States that it started draining a couple days ago. 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 Has not been shaving. Denies fevers, chills, chest pain,palpitations, shortness of breath, dyspnea, nausea, vomiting, diarrhea, abdominal pain, hematuria,headaches, wheezing, neck pain, weakness, bowel or bladder dysfunction, saddle anesthesia, numbness or tingling in bilateral upper or lower extremities equally, muscle paralysis, weakness in bilateral upper or lower extremities equally or rash. REVIEW OF SYSTEMS:reviewed vital signs by RN CONSTITUTIONAL : Denies fever, chills, or sweats. Denies recent illness. EENT: Denies eye, ear, throat, or mouth pain or symptoms. Denies nasal or sinus congestion or discharge. Denies throat, tongue, or mouth swelling or difficulty swallowing. CARDIOVASCULAR: Denies chest pain. Denies palpitations or racing or irregular heart beat. Denies ankle edema. RESPIRATORY: Denies cough, cold, or chest congestion. Denies shortness of breath, difficulty breathing, or wheezing. GASTROINTESTINAL: Denies abdominal pain or distention. Denies nausea, vomiting, or diarrhea. Denies blood in vomitus, stools, or per rectum. Denies black, tarry stools. Denies constipation. GENITOURINARY: Denies difficulty urinating, painful urination, burning, frequency, blood in urine, or discharge. FEMALE GENITOURINARY: Denies vaginal bleeding, heavy or abnormal periods, irregular periods. Denies vaginal discharge or odor. MUSCULOSKELETAL: Denies back or neck pain or stiffness. Denies joint pain or swelling. SKIN: Reports ingrown hair to left labia . denies rash, lesions or sores. HEMATOLOGIC : Denies easy bruising or bleeding. LYMPHATIC: Denies swollen, enlarged glands. NEUROLOGICAL: Denies confusion or altered mental status. Denies passing out or loss of consciousness. Denies dizziness or lightheadedness. Denies headache. Denies weakness or paralysis or loss of use of either side. Denies problems with gait or speech. Denies sensory loss, numbness, or tingling. Denies seizures. PSYCHIATRIC: Denies anxiety or stress. Denies depression, suicidal ideation, or homicidal ideation. ALL OTHER SYSTEMS REVIEWED AND NEGATIVE. PHYSICAL EXAMINATION: GENERAL: Well-appearing, well-nourished and in no acute distress. HEAD: Atraumatic, normocephalic. EYES: Pupils equal round and reactive to light, extraocular movements intact, conjunctiva are normal. ENT: Nares patent, oropharynx clear without exudates. Moist mucous membranes. NECK: Normal range of motion, supple without lymphadenopathy LUNGS: Breath sounds clear to auscultation bilaterally and equal. No wheezes rales or rhonchi. HEART: Regular rate and rhythm without murmurs ABDOMEN: Soft, nontender, nondistended abdomen. No guarding, no rebound. No masses appreciated. Female : Left labia with approximately 1 cm x 1 cm area of erythema with purulent drainage. No surrounding erythema or lymphadenopathy. Musculoskeletal: Normal range of motion, no pitting or edema. No cyanosis. NEUROLOGICAL: Cranial nerves grossly intact. Normal speech, normal gait. Normal sensory, motor exams PSYCH: Normal mood, normal affect. SKIN: Warm, Dry, normal turgor, no rashes or lesions noted. Dictation was performed using [employer] voice recognition software - REPRODUCTIVE Reproductive: DENIES: : Past Medical History - General Information source: Patient - Social History Smoking Status: Current Every Day Smoker Family History: CAD, DM, Hypertension, Malignancy - Past Medical History Cardiac Medical History: Reports: Hx Coronary Artery Disease, Hx Heart Attack, Hx Hypercholesterolemia, Hx Hypertension, Hx Peripheral Vascular Disease, Hx Pulmonary Embolism - Previously on long-term anticoagulation Denies: Hx Atrial Fibrillation, Hx Congestive Heart Failure Pulmonary Medical History: Reports: Hx Asthma, Hx Bronchitis, Hx COPD, Hx Pneumonia, Hx Respiratory Failure Neurological Medical History: Denies: Hx Seizures Endocrine Medical History: Reports: Hx Diabetes Mellitus Type 2, Hx Hypothyroidism. Denies: Hx Diabetes Mellitus Type 1, Hx Hyperthyroidism Renal/ Medical History: Denies: Hx Peritoneal Dialysis GI Medical History: Denies: Hx Cirrhosis, Hx Crohn's Disease, Hx Hepatitis, Hx Ulcerative Colitis Musculoskeletal Medical History: Reports Hx Arthritis, Denies Hx Fibromyalgia, Denies Hx Gout Skin Medical History: Denies Hx Eczema, Denies Hx Psoriasis Infectious Medical History: Denies: Hx Hepatitis Past Surgical History: Reports: Hx Cardiac Catheterization, Hx Cholecystectomy, Hx Coronary Stent, Hx Hysterectomy, Other - Oral cancer surgery Vertical Provider Document - INFECTION CONTROL TRAVEL OUTSIDE OF THE [place] IN LAST 30 DAYS: No Course - Re-evaluation Re-evalutation: 09/08/19 11:58 Afebrile vital stable no distress. Nurses notes reviewed. Patient states she has an ingrown hair, on clinical examination there is a left labia majora some induration and abscess draining. Wound culture obtained. Patient states she does not shave. No surrounding lymphadenopathy or erythema. Due to patient's history with MRSA, will start patient on clindamycin every 6 hours as directed, advised her to apply heat 20 minutes on 20 minutes off throughout the day to continue to bring abscess to a head. Advised patient to not drive, drink alcohol or operate machinery while taking narcotics as it causes impairments of Cognitive function, only take with severe pain. Patient presents with symptoms most consistent with an acute cellulitis. Vitals within normal limits. Patient states she just smoked cigarettes prior to coming to get her vitals obtained. patient does not meet sepsis criteria is overall very well in appearance. Patient will be started on coverage for both staph and strep. At this time will discharge with return precautions and follow-up recommendations. Verbal discharge instructions given a the bedside and opportunity for questions given. Medication warnings reviewed. Patient is in agreement with this plan and has verbalized understanding of return precautions and the need for primary care follow-up in the next 24-72 hours. - Vital Signs Vital signs: Temp Pulse Resp BP Pulse Ox 98.1 F 103 H 18 119/85 93 09/08/19 11:41 09/08/19 11:41 09/08/19 11:41 09/08/19 11:41 09/08/19 11:41 Discharge - Discharge Clinical Impression: draining abscess, Abscess of labia majora Condition: Stable Disposition: HOME, SELF-CARE Instructions: MRSA Cellulitis ([facility]), Abscess ([facility]), Oral Narcotic Medication ([facility]), Clindamycin ([facility]) Additional Instructions: The rash is likely due to infection of your skin. You need to take the antibiotics as prescribed. Do not stop even if the rash goes away until you have completed all the antibiotics. Do not drive, drink alcohol or operate machinery while taking narcotics as it can cause sedation and impairment of cognitive function. You should also return if you develop fevers with temperature greater than 101, persistent vomiting, worsening pain, or have any other symptoms that are concerning to you. Return immediately for any new or worsening symptoms. Follow up with primary care provider, call tomorrow to make followup appointment. Referrals: ALLIE FOSTER [Primary Care Provider] - Follow up as needed LUIS SLADE MD [ACTIVE STAFF] - Follow up as needed
== END 2019-09-08 11:59 | disposition home or self-care (01) ==
LOC: ER 11:37
DX: N76.4 Abscess of vulva (principal); E11.51 Type 2 diabetes mellitus with diabetic peripheral angiopathy without gangrene; I25.10 Atherosclerotic heart disease of native coronary artery without angina pectoris; I10 Essential (primary) hypertension; I25.2 Old myocardial infarction; J44.9 Chronic obstructive pulmonary disease, unspecified; F17.210 Nicotine dependence, cigarettes, uncomplicated; Z86.14 Personal history of Methicillin resistant Staphylococcus aureus infection
CPT/HCPCS: 87070; 87075; 87205; 99283